=== PATIENT | female | born 1975 | race Caucasian/White ===

== ENCOUNTER 2018-01-28 00:14 | Inpatient (IN) | payer BC, OTHER ==
[2018-01-28 00:50] VITALS: BMI 28.1
--- NOTE | 2018-01-28 00:50 | PDOC ---
History of Present Illness - General Chief Complaint: Rectal Bleed Stated Complaint: RECTAL BLEEDING Time Seen by Provider: 01/28/18 00:50 History Source: Patient - History of Present Illness Initial Comments: 42 year old female with history of crohn's complaining of rectal bleeding with several episodes of bloody diarrhea, nausea and vomiting. and LLQ abdominal pain. denies fever/ chills. pmhx: Chrons disease currently not on any meds. PMD: Past History - Past Medical History Allergies/Adverse Reactions: Allergies Allergy/AdvReac Type Severity Reaction Status Date / Time No Known Allergies Allergy Verified 01/28/18 00:41 Home Medications: Ambulatory Orders Eszopiclone 2 mg PO HS 01/28/18 Mesalamine [Canasa] 1,000 mg RC PRN 01/28/18 Mesalamine [Pentasa] 1,000 mg PO TID 30 Days #180 capsule.er 02/13/18 - Suicide/Smoking/Psychosocial Hx Smoking History: Never smoked Have you smoked in the past 12 months: No Information on smoking cessation initiated: No Hx Alcohol Use: No Drug/Substance Use Hx: No *Physical Exam - Vital Signs Last Vital Signs Temp Pulse Resp BP Pulse Ox 99.9 F H 99 H 20 116/77 99 01/28/18 00:41 01/28/18 00:41 01/28/18 00:41 01/28/18 00:41 01/28/18 00:41 - Physical Exam General Appearance: Yes: Appropriately Dressed Respiratory/Chest: positive: Lungs Clear, Normal Breath Sounds Cardiovascular: positive: Tachycardia Gastrointestinal/Abdominal: positive: Normal Bowel Sounds, Tender (LLQ), Soft Musculoskeletal: positive: Normal Inspection Extremity: positive: Normal Capillary Refill, Normal Inspection, Normal Range of Motion Integumentary: positive: Normal Color, Dry, Warm Neurologic: positive: Fully Oriented, Alert, Normal Mood/Affect ED Treatment Course - LABORATORY CBC & Chemistry Diagram: 02/04/18 06:30 02/04/18 06:30 Medical Decision Making - Medical Decision Making 01/28/18 05:52 A: abdominal pain P: cbc cmp guaiac stool + 01/28/18 06:23 CTAP: extensive colitis covered with levaquin and flagyl. Patient signed out to Carlton SAEED for Zahra Hinds / patient to be admitted for further management of care. 0 *DC/Admit/Observation/Transfer Diagnosis at time of Disposition: Bloody diarrhea, Colitis, Hypokalemia Abdominal pain Qualifiers: Abdominal location: left lower quadrant Qualified Code(s): R10.32 - Left lower quadrant pain - Discharge Dispostion Disposition: AGAINST MEDICAL ADVICE Decision to Admit order: Yes - Referrals - Patient Instructions - Post Discharge Activity
[2018-01-28] MEDS ORDERED: SODIUM CHLORIDE 500 ML IV STA (01:30)
[2018-01-28 02:17] LABS: BASO % 0.5 % (0-2.0); EOS % 0.9 % (0-4.5); HEMATOCRIT 33.1 % (32.4-45.2); HEMOGLOBIN 11.5 GM/dL (10.7-15.3); LYMPH % 7.9 % (8-40); MCH 30.7 pg (25.7-33.7); MCHC 34.7 g/dl (32.0-36.0); MEAN CELL VOLUME 88.4 fl (80-96); MEAN PLT VOLUME 6.6 fl (7.5-11.1); MONO % 7.3 % (3.8-10.2); NEUT % 83.4 % (42.8-82.8); PLATELET COUNT 562 K/MM3 (134-434); RBC 3.75 M/mm3 (3.60-5.2); RDW 15.1 % (11.6-15.6); RETICULOCYTES 1.25 % (0.5-1.5); WHITE BLOOD COUNT 13.6 K/mm3 (4.0-10.0)
[2018-01-28 02:36] LABS: INR 1.21 (0.82-1.09); PROTHROMBIN TIME (PATIENT) 13.7 SEC (9.7-13.0)
[2018-01-28 02:44] LABS: SERUM PREGNANCY TEST NEGATIVE
[2018-01-28 02:49] LABS: ALBUMIN 3.4 g/dl (3.4-5.0); ALK PHOS 124 U/L (45-117); ANION GAP 9 (8-16); BILIRUBIN,TOTAL 0.3 mg/dL (0.2-1.0); BLOOD UREA NITROGEN 4 mg/dL (7-18); CALCIUM 8.5 mg/dL (8.5-10.1); CHLORIDE 103 mmol/L (98-107); CO2 26 mmol/L (21-32); CREATININE 0.8 mg/dL (0.55-1.02); GLUCOSE,RANDOM 117 mg/dL (74-106); SGOT/AST 17 U/L (15-37); SGPT/ALT 23 U/L (12-78); SODIUM 138 mmol/L (136-145); TOT PROT 7.3 g/dl (6.4-8.2)
[2018-01-28] MEDS ORDERED: ONDANSETRON 4 MG/2 ML VIAL IVPUSH ONE (03:24)
[2018-01-28] MEDS ORDERED: POTASSIUM CHLORIDE TABS 20 MEQ TABLET.ER (FP) PO ONE ×2 (05:06→05:13)
[2018-01-28] MEDS ORDERED: morphine CARPU-JECT 2 MG/1 ML DISP.SYRIN IVPUSH ONE (05:10)
[2018-01-28] MEDS ORDERED: RANITIDINE HCL 150 MG TABLET (FP) ONE (06:28)
[2018-01-28] MEDS ORDERED: METOCLOPRAMIDE HCL INJECTION 10 MG/2 ML VIAL IVPB ONE (06:28)
[2018-01-28] MEDS ORDERED: morphine SULFATE 4 MG/ML VIAL ONE ×2 (06:29→09:28)
[2018-01-28] MEDS ORDERED: MAG HYDROX/AL HYDROX/SIMETH 30 ML UNIT-DOSE CUP ONE (06:29)
[2018-01-28] MEDS ORDERED: METOCLOPRAMIDE HCL INJECTION 10 MG/2 ML VIAL ONE (06:41)
[2018-01-28] MEDS ORDERED: SODIUM CHLORIDE 1,000 ML IV SCH ×2 (07:30→17:52)
--- NOTE | 2018-01-28 07:33 | HP ---
CHIEF COMPLAINT: bloody diarrhea, nausea, vomiting, abdominal pain, bloating PCP: Dr. Gilbert HISTORY OF PRESENT ILLNESS: This is a 42 year old female with PMHx of Crohn's Disease who presented to the ED with three days of bloody diarrhea, nausea, vomiting, abdominal pain, and bloating. The patient reports she has not had a Crohn's flare up in years and that she cannot remember when her last colonoscopy was. The patient recently moved to the area and does not have a GI provider. She denies any sick contacts. She denies any recent travel. The patient denies any chills. She denies any chest pain, palpitations, headache, dizziness, lower extremity edema. ER course was notable for: (1) Temp 99.9, pulse 99, BP 116/77, resp 20, O2 99% on RA (2) WBC 13.6, platelets 562 (3) K 3, repleted Recent Travel: PAST MEDICAL HISTORY: PAST SURGICAL HISTORY: Social History: Smoking: denies Alcohol: denies Drugs: smokes marijuana Family History: Allergies No Known Allergies Allergy (Verified 01/28/18 00:41) HOME MEDICATIONS: Home Medications Medication Instructions Recorded Eszopiclone 2 mg PO HS 01/28/18 Mesalamine [Canasa] 1,000 mg RC PRN 01/28/18 REVIEW OF SYSTEMS CONSTITUTIONAL: Absent: fever, chills, diaphoresis, generalized weakness, malaise, loss of appetite, weight change HEENT: Absent: rhinorrhea, nasal congestion, throat pain, throat swelling, difficulty swallowing, mouth swelling, ear pain, eye pain, visual changes CARDIOVASCULAR: Absent: chest pain, syncope, palpitations, irregular heart rate, lightheadedness , peripheral edema RESPIRATORY: Absent: cough, shortness of breath, dyspnea with exertion, orthopnea, wheezing, stridor, hemoptysis GASTROINTESTINAL: Nausea, vomiting, bloody diarrhea, abdominal pain, distention x3 days. Hx of Crohn's Absent: constipation GENITOURINARY: Absent: dysuria, frequency, urgency, hesitancy, hematuria, flank pain, genital pain MUSCULOSKELETAL: Absent: myalgia, arthralgia, joint swelling, back pain, neck pain SKIN: Absent: rash, itching, pallor HEMATOLOGIC/IMMUNOLOGIC: Absent: easy bleeding, easy bruising, lymphadenopathy, frequent infections ENDOCRINE: Absent: unexplained weight gain, unexplained weight loss, heat intolerance, cold intolerance NEUROLOGIC: Absent: headache, focal weakness or paresthesias, dizziness, unsteady gait, seizure, mental status changes, bladder or bowel incontinence PSYCHIATRIC: Absent: anxiety, depression, suicidal or homicidal ideation, hallucinations. PHYSICAL EXAMINATION Vital Signs - 24 hr 01/28/18 01/28/18 00:41 01:11 Temperature 99.9 F H Pulse Rate 99 H Respiratory 20 Rate Blood Pressure 116/77 O2 Sat by Pulse 99 98 Oximetry (%) GENERAL: Awake, alert, and fully oriented, in no acute distress. HEAD: Normal with no signs of trauma. EYES: Pupils equal, round and reactive to light, extraocular movements intact, sclera anicteric, conjunctiva clear. No lid lag. EARS, NOSE, THROAT: Ears normal, nares patent, oropharynx clear without exudates. Moist mucous membranes. NECK: Normal range of motion, supple without lymphadenopathy LUNGS: Breath sounds equal, clear to auscultation bilaterally. No wheezes, and no crackles. No accessory muscle use. HEART: Regular rate and rhythm, normal S1 and S2 without murmur, rub or gallop. ABDOMEN: Soft, distended. LLQ/LUQ tenderness. Normoactive bowel sounds. No hepatomegaly or splenomegaly. MUSCULOSKELETAL: Normal range of motion at all joints. No bony deformities or tenderness. No CVA tenderness. UPPER EXTREMITIES: 2+ pulses, warm, well-perfused. No cyanosis. No clubbing. No peripheral edema. LOWER EXTREMITIES: 2+ pulses, warm, well-perfused. No calf tenderness. No peripheral edema. NEUROLOGICAL: Cranial nerves II-XII intact. Normal speech. PSYCHIATRIC: Cooperative. Good eye contact. Appropriate mood and affect. SKIN: Warm, dry, normal turgor, no rashes or lesions noted, normal capillary refill. Laboratory Results - last 24 hr 01/28/18 01/28/18 01/28/18 02:00 02:00 02:00 WBC 13.6 H RBC 3.75 Hgb 11.5 Hct 33.1 MCV 88.4 MCH 30.7 MCHC 34.7 RDW 15.1 Plt Count 562 H MPV 6.6 L Neutrophils % 83.4 H Lymphocytes % 7.9 L Monocytes % 7.3 Eosinophils % 0.9 Basophils % 0.5 Retic Count 1.25 PT with INR 13.70 H INR 1.21 H Sodium Potassium Chloride Carbon Dioxide Anion Gap BUN Creatinine Creat Clearance w eGFR Random Glucose Calcium Total Bilirubin AST ALT Alkaline Phosphatase Total Protein Albumin Serum , Qual Negative Stool Occult Blood Positive Blood Type Antibody Screen 01/28/18 01/28/18 02:00 02:00 WBC RBC Hgb Hct MCV MCH MCHC RDW Plt Count MPV Neutrophils % Lymphocytes % Monocytes % Eosinophils % Basophils % Retic Count PT with INR INR Sodium 138 Potassium 3.0 L Chloride 103 Carbon Dioxide 26 Anion Gap 9 BUN 4 L Creatinine 0.8 Creat Clearance w eGFR > 60 Random Glucose 117 H Calcium 8.5 Total Bilirubin 0.3 AST 17 ALT 23 Alkaline Phosphatase 124 H Total Protein 7.3 Albumin 3.4 Serum , Qual Stool Occult Blood Blood Type O POSITIVE Antibody Screen Negative Assessment: This is a 42 year old female with PMHx of Crohn's Disease who presented to the ED with three days of bloody diarrhea, nausea, vomiting, abdominal pain, and bloating. Plan: 1) Bloody diarrhea - CTAP: Moderate colitis extending from the hepatic flexure to the rectum may be due to infection or inflammatory bowel disease. Small involuting right ovarian cysts - Likely Crohn's flare however cannot rule out infectious etiology - Will send stool studies to r/o infection. If all are negative for infection, will consider starting steroid taper - NPO for now - Pain management: Morphine 1mg IVPB q4h prn - IV fluids - Trend H/H - F/u GI consult 2) F/E/N: - Hypokalemia: repleted, recheck this afternoon - NPO, bowel rest - Monitor electrolytes 3) Prophylaxis: - Hold all chemical DVT prophylaxis 2/2 - SCDs bilaterally 4) Dispo: - Requires continued inpatient care CODE STATUS: FULL CODE Visit type - Emergency Visit Emergency Visit: Yes ED Registration Date: 01/28/18 Care time: The patient presented to the Emergency Department on the above date and was hospitalized for further evaluation of their emergent condition. - New Patient This patient is new to me today: Yes Date on this admission: 01/28/18 - Critical Care Critical Care patient: No Hospitalist Screening - Colonoscopy Questionnaire Colonoscopy Questionnaire: Colonoscopy Questionnaire - Patient: 50 - 75 years old and never had a screening colonoscopy: No History of colon or rectal polyps, or CA: Unknown History of IBD, Crohn's disease or UC: Yes History of abdominal radiation therapy as a child: No - Relative: 1 with colon or rectal CA, or polyps at age 60 or younger: Unknown Colon or rectal CA diagnosed at age 45 or younger: Unknown Multiple relatives with colon or rectal CA: Unknown - Outcome: Screening Result: Positive Screen
--- NOTE | 2018-01-28 08:29 | CON.GI ---
Consult Consult Specialty:: GI Reason for Consultation:: colitis, history of Crohn's - History of Present Illness History of Present Illness: chart reviewed. The events noted. As per initial intake: This is a 42 year old female with PMHx of Crohn's Disease who presented to the ED with three days of bloody diarrhea, nausea, vomiting, abdominal pain, and bloating. The patient reports she has not had a Crohn's flare up in years and that she cannot remember when her last colonoscopy was. The patient recently moved to the area and does not have a GI provider. She denies any sick contacts. She denies any recent travel. The patient denies any chills. She denies any chest pain, palpitations, headache, dizziness, lower extremity edema. CT scan of the abdomen and pelvis revealed colitis from hepatic flexure to the rectum. Patient had mild leukocytosis and hypokalemia on admission. At the time of this encounter the patient appears in mild distress. Reports fairly acute onset generalized abdominal pain with 2 episodes of hematochezia 3 days ago. Asymptomatic prior to that. Denies dysphagia, odynophagia, chronic GERD-like symptoms, weight loss, jaundice, fever, chills, joint, skin, eye symptoms. No records of recent colonoscopy. There is no recent history of chronic NSAID use, excessive alcohol. There is no history of hypercoagulable states, or excessive bleeding. Denies exposure to ill, changes in diet, new medications, recent travel, eating out. History of Crohn's colitis managed with 5-ASA compounds and steroids with last flareup 12 years ago. Not on any maintenance for the last 12 years. - History Source History Provided By: Patient, Medical Record - Alcohol/Substance Use Hx Alcohol Use: No - Smoking History Smoking history: Never smoked Have you smoked in the past 12 months: No Home Medications - Allergies Allergies/Adverse Reactions: Allergies Allergy/AdvReac Type Severity Reaction Status Date / Time No Known Allergies Allergy Verified 01/28/18 00:41 - Home Medications Home Medications: Ambulatory Orders Eszopiclone 2 mg PO HS 01/28/18 Mesalamine [Canasa] 1,000 mg RC PRN 01/28/18 Family Disease History - Family Disease History Family History: Unremarkable Review of Systems Findings/Remarks: as per H&P and HPI Physical Exam-GI Vital Signs: Vital Signs Temperature 99.9 F H 01/28/18 00:41 Pulse Rate 99 H 01/28/18 00:41 Respiratory Rate 20 01/28/18 00:41 Blood Pressure 116/77 01/28/18 00:41 O2 Sat by Pulse Oximetry (%) 98 01/28/18 01:11 Constitutional: Yes: Anxious, Mild Distress Eyes: Yes: Conjunctiva Clear HENT: Yes: Atraumatic Neck: Yes: Supple Cardiovascular: Yes: Regular Rate and Rhythm. No: Bradycardia, Tachycardia Respiratory: Yes: Regular Gastrointestinal Inspection: No: Distention ...Auscultate: Yes: Normoactive Bowel Sounds ...Palpate: Yes: Guarding, Soft, Tenderness, Tenderness, Rebound. No: Firm/ Rigid, Mass Neurological: Yes: Alert, Oriented Labs: CBC, BMP 01/28/18 02:00 01/28/18 02:00 INR, PTT INR 1.21 (0.82-1.09) H 01/28/18 02:00 Laboratory Last Values WBC 15.8 K/mm3 (4.0-10.0) H 01/28/18 09:50 RBC 3.99 M/mm3 (3.60-5.2) 01/28/18 09:50 Hgb 11.9 GM/dL (10.7-15.3) 01/28/18 09:50 Hct 35.6 % (32.4-45.2) 01/28/18 09:50 MCV 89.2 fl (80-96) 01/28/18 09:50 MCH 29.9 pg (25.7-33.7) 01/28/18 09:50 MCHC 33.5 g/dl (32.0-36.0) 01/28/18 09:50 RDW 14.9 % (11.6-15.6) 01/28/18 09:50 Plt Count 618 K/MM3 (134-434) H 01/28/18 09:50 MPV 6.8 fl (7.5-11.1) L 01/28/18 09:50 Neutrophils % 83.4 % (42.8-82.8) H 01/28/18 02:00 Lymphocytes % 7.9 % (8-40) L 01/28/18 02:00 Monocytes % 7.3 % (3.8-10.2) 01/28/18 02:00 Eosinophils % 0.9 % (0-4.5) 01/28/18 02:00 Basophils % 0.5 % (0-2.0) 01/28/18 02:00 Retic Count 1.25 % (0.5-1.5) 01/28/18 02:00 PT with INR 13.70 SEC (9.7-13.0) H 01/28/18 02:00 INR 1.21 (0.82-1.09) H 01/28/18 02:00 Sodium 138 mmol/L (136-145) 01/28/18 02:00 Potassium 3.0 mmol/L (3.5-5.1) L 01/28/18 02:00 Chloride 103 mmol/L (98-107) 01/28/18 02:00 Carbon Dioxide 26 mmol/L (21-32) 01/28/18 02:00 Anion Gap 9 (8-16) 01/28/18 02:00 BUN 4 mg/dL (7-18) L 01/28/18 02:00 Creatinine 0.8 mg/dL (0.55-1.02) 01/28/18 02:00 Creat Clearance w eGFR > 60 (>60) 01/28/18 02:00 Random Glucose 117 mg/dL (74-106) H 01/28/18 02:00 Calcium 8.5 mg/dL (8.5-10.1) 01/28/18 02:00 Total Bilirubin 0.3 mg/dL (0.2-1.0) 01/28/18 02:00 AST 17 U/L (15-37) 01/28/18 02:00 ALT 23 U/L (12-78) 01/28/18 02:00 Alkaline Phosphatase 124 U/L (45-117) H 01/28/18 02:00 Total Protein 7.3 g/dl (6.4-8.2) 01/28/18 02:00 Albumin 3.4 g/dl (3.4-5.0) 01/28/18 02:00 Serum , Qual Negative 01/28/18 02:00 Stool Occult Blood Positive (NEGATIVE) 01/28/18 08:50 Blood Type O POSITIVE 01/28/18 02:00 Antibody Screen Negative 01/28/18 02:00 Imaging - Results Cat Scan: Report Reviewed Problem List - Problems (1) Hematochezia Code(s): K92.1 - MELENA (2) Crohn's colitis Code(s): K50.10 - CROHN'S DISEASE OF LARGE INTESTINE WITHOUT COMPLICATIONS (3) Abdominal pain Code(s): R10.9 - UNSPECIFIED ABDOMINAL PAIN Qualifiers: Abdominal location: left lower quadrant Qualified Code(s): R10.32 - Left lower quadrant pain (4) Colitis Code(s): K52.9 - NONINFECTIVE GASTROENTERITIS AND COLITIS, UNSPECIFIED (5) Hypokalemia Code(s): E87.6 - HYPOKALEMIA Assessment/Plan Agree with bowel rest, IV fluids, stool workup for infectious etiologies. Consider Cipro and Flagyl. Agree with holding off steroids until infectious etiology is ruled out. Daily CBC, CMP, direct bili. IBD panel. EGD and colonoscopy in 4-6 weeks.
[2018-01-28] MEDS ORDERED: morphine SULFATE 4 MG/ML VIAL IVPUSH PRN (09:06)
[2018-01-28 10:30] LABS: HEMATOCRIT 35.6 % (32.4-45.2); HEMOGLOBIN 11.9 GM/dL (10.7-15.3); MCH 29.9 pg (25.7-33.7); MCHC 33.5 g/dl (32.0-36.0); MEAN CELL VOLUME 89.2 fl (80-96); MEAN PLT VOLUME 6.8 fl (7.5-11.1); PLATELET COUNT 618 K/MM3 (134-434); RBC 3.99 M/mm3 (3.60-5.2); RDW 14.9 % (11.6-15.6); WHITE BLOOD COUNT 15.8 K/mm3 (4.0-10.0)
[2018-01-28] MEDS ORDERED: morphine SULFATE 4 MG/ML VIAL IVPUSH ONE (11:00)
[2018-01-28] MEDS ORDERED: ACETAMINOPHEN 325 MG TABLET (FP) ONE (15:30)
[2018-01-28 17:03] LABS: HEMATOCRIT 29.8 % (32.4-45.2); HEMOGLOBIN 10.3 GM/dL (10.7-15.3); MCH 30.4 pg (25.7-33.7); MCHC 34.7 g/dl (32.0-36.0); MEAN CELL VOLUME 87.6 fl (80-96); MEAN PLT VOLUME 6.4 fl (7.5-11.1); PLATELET COUNT 506 K/MM3 (134-434); RBC 3.39 M/mm3 (3.60-5.2); RDW 15.2 % (11.6-15.6); WHITE BLOOD COUNT 16.7 K/mm3 (4.0-10.0)
[2018-01-28 17:37] LABS: ANION GAP 12 (8-16); CALCIUM 7.7 mg/dL (8.5-10.1); CHLORIDE 102 mmol/L (98-107); CO2 22 mmol/L (21-32); CREATININE 0.6 mg/dL (0.55-1.02); GLUCOSE,RANDOM 115 mg/dL (74-106); SODIUM 136 mmol/L (136-145)
[2018-01-28 17:39] LABS: BLOOD UREA NITROGEN 2 mg/dL (7-18)
[2018-01-28 17:40] LABS: POTASSIUM 2.7 mmol/L (3.5-5.1)
[2018-01-28] MEDS ORDERED: POTASSIUM CHLORIDE 30 MEQ in SODIUM CHLORIDE 300 ML IVPB ONE (18:00)
[2018-01-28] MEDS ORDERED: KCL 10 MEQ IVPB 10 MEQ/100 ML INFUS.BAG IVPB SCH ×2 (18:00→18:30)
[2018-01-28] MEDS ORDERED: PROCHLORPERAZINE INJECTION 10 MG/2 ML VIAL IVPB ONE (19:00)
[2018-01-29] MEDS: morphine SULFATE 4 MG/ML VIAL IVPUSH PRN ×5 (01:27→20:35)
[2018-01-29 02:20] LABS: MAGNESIUM 1.8 mg/dL (1.8-2.4); POTASSIUM 3.3 mmol/L (3.5-5.1)
[2018-01-29] MEDS ORDERED: PT OWN MED DRAWER 7, Y5N ONE (06:29)
[2018-01-29 09:26] LABS: BASO % 0.2 % (0-2.0); EOS % 0.1 % (0-4.5); HEMATOCRIT 30.2 % (32.4-45.2); HEMOGLOBIN 10.3 GM/dL (10.7-15.3); LYMPH % 6.9 % (8-40); MCH 30.4 pg (25.7-33.7); MCHC 34.1 g/dl (32.0-36.0); MEAN PLT VOLUME 6.8 fl (7.5-11.1); MONO % 10.6 % (3.8-10.2); NEUT % 82.2 % (42.8-82.8); PLATELET COUNT 486 K/MM3 (134-434); RDW 15.4 % (11.6-15.6)
--- NOTE | 2018-01-29 09:55 | PN ---
Progress Note, Physician History of Present Illness: Slept all night. Reports hematochezia and eneralized abdominal pain. - Current Medication List Current Medications: Active Medications Levofloxacin (Levaquin 500 Mg Premixed Ivpb -) 500 mg in 100 mls @ 100 mls/hr IVPB DAILY NANCY PRN Reason: Protocol Metronidazole (Flagyl 500mg Premixed Ivpb -) 500 mg in 100 mls @ 100 mls/hr IVPB Q8H-IV NANCY Last Admin: 01/29/18 01:28 Dose: 100 mls/hr Sodium Chloride (Normal Saline -) 1,000 mls @ 100 mls/hr IV ASDIR NANCY Last Admin: 01/28/18 18:24 Dose: 100 mls/hr Morphine Sulfate (Morphine Sulfate) 2 mg IVPUSH Q4H PRN PRN Reason: PAIN LEVEL 6-10 Last Admin: 01/29/18 06:10 Dose: 2 mg - Objective Vital Signs: Vital Signs Temperature 98.8 F 01/29/18 05:00 Pulse Rate 93 H 01/29/18 05:00 Respiratory Rate 18 01/29/18 05:00 Blood Pressure 130/79 01/29/18 05:00 O2 Sat by Pulse Oximetry (%) 97 01/28/18 21:00 Constitutional: Yes: No Distress, Calm Eyes: Yes: Conjunctiva Clear HENT: Yes: Atraumatic Neck: Yes: Supple Respiratory: Yes: Regular Gastrointestinal: Yes: Normal Bowel Sounds, Soft, Rectal Bleeding, Tenderness. No: Ascites, Distention Neurological: Yes: Alert, Oriented Labs: CBC, BMP 01/29/18 08:00 INR, PTT INR 1.21 (0.82-1.09) H 01/28/18 02:00 Laboratory Last Values WBC 15.0 K/mm3 (4.0-10.0) H 01/29/18 08:00 RBC 3.40 M/mm3 (3.60-5.2) L 01/29/18 08:00 Hgb 10.3 GM/dL (10.7-15.3) L 01/29/18 08:00 Hct 30.2 % (32.4-45.2) L 01/29/18 08:00 MCV 89.0 fl (80-96) 01/29/18 08:00 MCH 30.4 pg (25.7-33.7) 01/29/18 08:00 MCHC 34.1 g/dl (32.0-36.0) 01/29/18 08:00 RDW 15.4 % (11.6-15.6) 01/29/18 08:00 Plt Count 486 K/MM3 (134-434) H 01/29/18 08:00 MPV 6.8 fl (7.5-11.1) L 01/29/18 08:00 Neutrophils % 82.2 % (42.8-82.8) 01/29/18 08:00 Lymphocytes % 6.9 % (8-40) L 01/29/18 08:00 Monocytes % 10.6 % (3.8-10.2) H 01/29/18 08:00 Eosinophils % 0.1 % (0-4.5) D 01/29/18 08:00 Basophils % 0.2 % (0-2.0) 01/29/18 08:00 Retic Count 1.25 % (0.5-1.5) 01/28/18 02:00 PT with INR 13.70 SEC (9.7-13.0) H 01/28/18 02:00 INR 1.21 (0.82-1.09) H 01/28/18 02:00 Sodium 136 mmol/L (136-145) 01/28/18 16:57 Potassium 3.3 mmol/L (3.5-5.1) L 01/29/18 01:10 Chloride 102 mmol/L (98-107) 01/28/18 16:57 Carbon Dioxide 22 mmol/L (21-32) 01/28/18 16:57 Anion Gap 12 (8-16) 01/28/18 16:57 BUN 2 mg/dL (7-18) L* 01/28/18 16:57 Creatinine 0.6 mg/dL (0.55-1.02) 01/28/18 16:57 Creat Clearance w eGFR > 60 (>60) 01/28/18 02:00 Random Glucose 115 mg/dL (74-106) H 01/28/18 16:57 Calcium 7.7 mg/dL (8.5-10.1) L 01/28/18 16:57 Magnesium 1.8 mg/dL (1.8-2.4) 01/29/18 01:10 Total Bilirubin 0.3 mg/dL (0.2-1.0) 01/28/18 02:00 AST 17 U/L (15-37) 01/28/18 02:00 ALT 23 U/L (12-78) 01/28/18 02:00 Alkaline Phosphatase 124 U/L (45-117) H 01/28/18 02:00 Total Protein 7.3 g/dl (6.4-8.2) 01/28/18 02:00 Albumin 3.4 g/dl (3.4-5.0) 01/28/18 02:00 Serum , Qual Negative 01/28/18 02:00 Stool Occult Blood Positive (NEGATIVE) 01/28/18 08:50 Blood Type O POSITIVE 01/28/18 02:00 Antibody Screen Negative 01/28/18 02:00 Microbiology 01/28/18 08:50 Stool Clostridium difficile Antigen (NOEL) - Final 01/28/18 08:50 Stool Clostridium difficile Toxin Assay - Final Problem List - Problems (1) Hematochezia Code(s): K92.1 - MELENA (2) Crohn's colitis Code(s): K50.10 - CROHN'S DISEASE OF LARGE INTESTINE WITHOUT COMPLICATIONS (3) Abdominal pain Code(s): R10.9 - UNSPECIFIED ABDOMINAL PAIN Qualifiers: Abdominal location: left lower quadrant Qualified Code(s): R10.32 - Left lower quadrant pain (4) Colitis Code(s): K52.9 - NONINFECTIVE GASTROENTERITIS AND COLITIS, UNSPECIFIED (5) Hypokalemia Code(s): E87.6 - HYPOKALEMIA Assessment/Plan Nontoxic. Not in distress Clear liquid diet, Stool workup for infectious etiologies. Cipro and Flagyl. Agree with holding off steroids until infectious etiology is ruled out. Daily CBC, CMP, direct bili. IBD panel. EGD and colonoscopy in 4-6 weeks.
[2018-01-29 10:25] LABS: CHLORIDE 105 mmol/L (98-107); POTASSIUM 3.1 mmol/L (3.5-5.1); SODIUM 139 mmol/L (136-145)
--- NOTE | 2018-01-29 11:33 | PN ---
Progress Note, Physician Chief Complaint: Events noted has abdominal pain two episodes of bloody diarrhea nausea+ - Current Medication List Current Medications: Active Medications Levofloxacin (Levaquin 500 Mg Premixed Ivpb -) 500 mg in 100 mls @ 100 mls/hr IVPB DAILY NANCY PRN Reason: Protocol Last Admin: 01/29/18 10:21 Dose: 100 mls/hr Metronidazole (Flagyl 500mg Premixed Ivpb -) 500 mg in 100 mls @ 100 mls/hr IVPB Q8H-IV NANCY Last Admin: 01/29/18 10:21 Dose: 100 mls/hr Sodium Chloride (Normal Saline -) 1,000 mls @ 100 mls/hr IV ASDIR NANCY Last Admin: 01/28/18 18:24 Dose: 100 mls/hr Morphine Sulfate (Morphine Sulfate) 2 mg IVPUSH Q4H PRN PRN Reason: PAIN LEVEL 6-10 Last Admin: 01/29/18 10:21 Dose: 2 mg - Objective Vital Signs: Vital Signs Temperature 98.8 F 01/29/18 05:00 Pulse Rate 93 H 01/29/18 05:00 Respiratory Rate 18 01/29/18 05:00 Blood Pressure 130/79 01/29/18 05:00 O2 Sat by Pulse Oximetry (%) 97 01/28/18 21:00 Constitutional: Yes: No Distress Cardiovascular: Yes: Regular Rate and Rhythm Respiratory: Yes: CTA Bilaterally Gastrointestinal: Yes: Normal Bowel Sounds, Soft, Tenderness (generalized) Edema: No Labs: CBC, BMP 01/29/18 08:00 INR, PTT INR 1.21 (0.82-1.09) H 01/28/18 02:00 Problem List - Problems (1) Abdominal pain Code(s): R10.9 - UNSPECIFIED ABDOMINAL PAIN Qualifiers: Abdominal location: left lower quadrant Qualified Code(s): R10.32 - Left lower quadrant pain (2) Bloody diarrhea Code(s): R19.7 - DIARRHEA, UNSPECIFIED (3) Colitis Code(s): K52.9 - NONINFECTIVE GASTROENTERITIS AND COLITIS, UNSPECIFIED (4) Crohn's colitis Code(s): K50.10 - CROHN'S DISEASE OF LARGE INTESTINE WITHOUT COMPLICATIONS (5) Hypokalemia Code(s): E87.6 - HYPOKALEMIA Assessment/Plan PLAN replace potassium Add potassium chloride in fluids clear liquid diet pain control GI follow up
[2018-01-29 11:43] LABS: ALBUMIN 2.8 g/dl (3.4-5.0); ALK PHOS 97 U/L (45-117); ANION GAP 12 (8-16); BILIRUBIN,TOTAL 0.3 mg/dL (0.2-1.0); BLOOD UREA NITROGEN 3 mg/dL (7-18); CALCIUM 7.8 mg/dL (8.5-10.1); CO2 22 mmol/L (21-32); CREATININE 0.6 mg/dL (0.55-1.02); GLUCOSE,RANDOM 100 mg/dL (74-106); MAGNESIUM 2.1 mg/dL (1.8-2.4); PHOSPHOROUS 2.1 mg/dL (2.5-4.9); SGOT/AST 8 U/L (15-37); SGPT/ALT 14 U/L (12-78); TOT PROT 6.2 g/dl (6.4-8.2)
[2018-01-29] MEDS: POTASSIUM CHLORIDE 40 MEQ in SODIUM CHLORIDE 1,000 ML IVPB SCH ×3 (13:29→23:24)
[2018-01-29] MEDS: ACETAMINOPHEN 325 MG TABLET (FP) PO PRN ×2 (13:45→19:36)
[2018-01-29] MEDS ORDERED: POTASSIUM CHLORIDE TABS 20 MEQ TABLET.ER (FP) PO ONE (13:45)
--- NOTE | 2018-01-29 13:58 | EKG ---
Test Reason : Blood Pressure : / mmHG Vent. Rate : 089 BPM Atrial Rate : 089 BPM P-R Int : 144 ms QRS Dur : 090 ms QT Int : 370 ms P-R-T Axes : 025 054 -13 degrees QTc Int : 450 ms NORMAL SINUS RHYTHM ABNORMAL QRS-T ANGLE, CONSIDER PRIMARY T WAVE ABNORMALITY ABNORMAL ECG WHEN COMPARED WITH ECG OF 18-MAY-2001 12:46, NO SIGNIFICANT CHANGE WAS FOUND Confirmed by YURIDIA CHUA, DEVON ([id number]) on 01/29/2018 1:58:11 PM Referred By: Confirmed By:DEVON SHI MD
[2018-01-29] MEDS: predniSONE 20 MG TABLET (UD) PO SCH (15:46)
[2018-01-29] MEDS: ONDANSETRON 4 MG/2 ML VIAL IVPUSH PRN (16:05)
[2018-01-29 20:43] LABS: BASO % 0.2 % (0-2.0); EOS % 0.1 % (0-4.5); HEMATOCRIT 30.1 % (32.4-45.2); HEMOGLOBIN 10.4 GM/dL (10.7-15.3); LYMPH % 3.2 % (8-40); MCH 30.4 pg (25.7-33.7); MCHC 34.3 g/dl (32.0-36.0); MEAN CELL VOLUME 88.5 fl (80-96); MEAN PLT VOLUME 6.7 fl (7.5-11.1); MONO % 8.6 % (3.8-10.2); NEUT % 87.9 % (42.8-82.8); PLATELET COUNT 486 K/MM3 (134-434); RBC 3.41 M/mm3 (3.60-5.2); RDW 15.4 % (11.6-15.6); WHITE BLOOD COUNT 14.8 K/mm3 (4.0-10.0)
[2018-01-29 21:07] LABS: ALBUMIN 2.6 g/dl (3.4-5.0); ALK PHOS 93 U/L (45-117); ANION GAP 12 (8-16); BILIRUBIN,TOTAL 0.4 mg/dL (0.2-1.0); BLOOD UREA NITROGEN 3 mg/dL (7-18); CALCIUM 7.8 mg/dL (8.5-10.1); CHLORIDE 106 mmol/L (98-107); CO2 21 mmol/L (21-32); CREATININE 0.5 mg/dL (0.55-1.02); GLUCOSE,RANDOM 122 mg/dL (74-106); POTASSIUM 3.3 mmol/L (3.5-5.1); SGOT/AST 8 U/L (15-37); SGPT/ALT 14 U/L (12-78); SODIUM 139 mmol/L (136-145)
[2018-01-30] MEDS: morphine SULFATE 4 MG/ML VIAL IVPUSH PRN ×2 (01:33→09:38)
[2018-01-30] MEDS ORDERED: morphine SULFATE 4 MG/ML VIAL IVPUSH ONE (03:45)
[2018-01-30 07:58] LABS: BASO % 0.2 % (0-2.0); HEMATOCRIT 28.8 % (32.4-45.2); HEMOGLOBIN 9.9 GM/dL (10.7-15.3); MCH 30.3 pg (25.7-33.7); MCHC 34.3 g/dl (32.0-36.0); MEAN CELL VOLUME 88.4 fl (80-96); MEAN PLT VOLUME 6.7 fl (7.5-11.1); MONO % 10.2 % (3.8-10.2); NEUT % 85.6 % (42.8-82.8); PLATELET COUNT 462 K/MM3 (134-434); RBC 3.26 M/mm3 (3.60-5.2); WHITE BLOOD COUNT 15.4 K/mm3 (4.0-10.0)
[2018-01-30 08:47] LABS: CHLORIDE 108 mmol/L (98-107); POTASSIUM 3.5 mmol/L (3.5-5.1); SODIUM 140 mmol/L (136-145)
[2018-01-30 09:00] LABS: ALBUMIN 2.4 g/dl (3.4-5.0); ALK PHOS 87 U/L (45-117); ANION GAP 8 (8-16); BILIRUBIN,TOTAL 0.4 mg/dL (0.2-1.0); BLOOD UREA NITROGEN 4 mg/dL (7-18); CALCIUM 7.7 mg/dL (8.5-10.1); CO2 24 mmol/L (21-32); CREATININE 0.5 mg/dL (0.55-1.02); GLUCOSE,RANDOM 172 mg/dL (74-106); MAGNESIUM 2.2 mg/dL (1.8-2.4); SGOT/AST 7 U/L (15-37); SGPT/ALT 13 U/L (12-78); TOT PROT 5.8 g/dl (6.4-8.2)
[2018-01-30] MEDS: POTASSIUM CHLORIDE 40 MEQ in SODIUM CHLORIDE 1,000 ML IVPB SCH ×3 (09:37→18:18)
[2018-01-30] MEDS ORDERED: PT OWN MED DRAWER 7, Y5N ONE ×2 (13:10→17:37)
--- NOTE | 2018-01-30 13:13 | PN ---
Progress Note, Physician Chief Complaint: has abdominal pain-- better three episodes of bloody diarrhea nausea+ also on her menstrual cycle - Current Medication List Current Medications: Active Medications Acetaminophen (Tylenol -) 650 mg PO Q6H PRN PRN Reason: FEVER Last Admin: 01/29/18 19:36 Dose: 650 mg Levofloxacin (Levaquin 500 Mg Premixed Ivpb -) 500 mg in 100 mls @ 100 mls/hr IVPB DAILY NANCY PRN Reason: Protocol Last Admin: 01/30/18 09:39 Dose: 100 mls/hr Metronidazole (Flagyl 500mg Premixed Ivpb -) 500 mg in 100 mls @ 100 mls/hr IVPB Q8H-IV NANCY Last Admin: 01/30/18 09:38 Dose: 100 mls/hr Potassium Chloride 40 meq/ (Sodium Chloride) 1,020 mls @ 100 mls/hr IVPB Q10H [facility] Last Admin: 01/30/18 09:37 Dose: Not Given Melatonin (Melatonin) 5 mg PO HS PRN PRN Reason: INSOMNIA Morphine Sulfate (Morphine Sulfate) 2 mg IVPUSH Q4H PRN PRN Reason: PAIN LEVEL 6-10 Last Admin: 01/30/18 09:38 Dose: 2 mg Ondansetron HCl (Zofran Injection) 4 mg IVPUSH Q6H PRN PRN Reason: NAUSEA AND/OR VOMITING Last Admin: 01/29/18 16:05 Dose: 4 mg Oxycodone HCl (Roxicodone -) 10 mg PO Q4H PRN PRN Reason: PAIN LEVEL 6-10 Prednisone (Deltasone -) 40 mg PO DAILY [facility] Last Admin: 01/29/18 15:46 Dose: 40 mg - Objective Vital Signs: Vital Signs Temperature 97.4 F L 01/30/18 07:00 Pulse Rate 84 01/30/18 07:00 Respiratory Rate 20 01/30/18 07:00 Blood Pressure 110/63 01/30/18 07:00 O2 Sat by Pulse Oximetry (%) 97 01/29/18 20:30 Constitutional: Yes: Mild Distress Cardiovascular: Yes: Regular Rate and Rhythm Respiratory: Yes: CTA Bilaterally Gastrointestinal: Yes: Normal Bowel Sounds, Soft, Tenderness Edema: No Labs: CBC, BMP 01/30/18 06:30 01/30/18 06:30 INR, PTT INR 1.21 (0.82-1.09) H 01/28/18 02:00 Problem List - Problems (1) Abdominal pain Code(s): R10.9 - UNSPECIFIED ABDOMINAL PAIN Qualifiers: Abdominal location: left lower quadrant Qualified Code(s): R10.32 - Left lower quadrant pain (2) Bloody diarrhea Code(s): R19.7 - DIARRHEA, UNSPECIFIED (3) Colitis Code(s): K52.9 - NONINFECTIVE GASTROENTERITIS AND COLITIS, UNSPECIFIED (4) Crohn's colitis Code(s): K50.10 - CROHN'S DISEASE OF LARGE INTESTINE WITHOUT COMPLICATIONS (5) Hypokalemia Code(s): E87.6 - HYPOKALEMIA Assessment/Plan PLAN stool studies negative for infectious etiology started on Prednisone clear liquid diet pain control, oxycodone prn GI follow up noted
[2018-01-30] MEDS: predniSONE 20 MG TABLET (UD) PO SCH (13:17)
[2018-01-30] MEDS: oxyCODONE HCL 5 MG TABLET PO PRN ×3 (13:18→22:23)
--- NOTE | 2018-01-30 15:37 | PN ---
Progress Note, Physician History of Present Illness: No acute events. Reports feeling better. - Current Medication List Current Medications: Active Medications Acetaminophen (Tylenol -) 650 mg PO Q6H PRN PRN Reason: FEVER Last Admin: 01/29/18 19:36 Dose: 650 mg Levofloxacin (Levaquin 500 Mg Premixed Ivpb -) 500 mg in 100 mls @ 100 mls/hr IVPB DAILY NANCY PRN Reason: Protocol Last Admin: 01/30/18 09:39 Dose: 100 mls/hr Metronidazole (Flagyl 500mg Premixed Ivpb -) 500 mg in 100 mls @ 100 mls/hr IVPB Q8H-IV NANCY Last Admin: 01/30/18 09:38 Dose: 100 mls/hr Potassium Chloride 40 meq/ (Sodium Chloride) 1,020 mls @ 100 mls/hr IVPB Q10H [facility] Last Admin: 01/30/18 13:17 Dose: 100 mls/hr Melatonin (Melatonin) 5 mg PO HS PRN PRN Reason: INSOMNIA Morphine Sulfate (Morphine Sulfate) 2 mg IVPUSH Q4H PRN PRN Reason: PAIN LEVEL 6-10 Last Admin: 01/30/18 09:38 Dose: 2 mg Ondansetron HCl (Zofran Injection) 4 mg IVPUSH Q6H PRN PRN Reason: NAUSEA AND/OR VOMITING Last Admin: 01/29/18 16:05 Dose: 4 mg Oxycodone HCl (Roxicodone -) 10 mg PO Q4H PRN PRN Reason: PAIN LEVEL 6-10 Last Admin: 01/30/18 13:18 Dose: 10 mg Prednisone (Deltasone -) 40 mg PO DAILY [facility] Last Admin: 01/30/18 13:17 Dose: 40 mg - Objective Vital Signs: Vital Signs Temperature 99.2 F 01/30/18 14:19 Pulse Rate 97 H 01/30/18 14:19 Respiratory Rate 20 01/30/18 14:19 Blood Pressure 128/75 01/30/18 14:19 O2 Sat by Pulse Oximetry (%) 97 01/29/18 20:30 Labs: CBC, BMP 01/30/18 06:30 01/30/18 06:30 INR, PTT INR 1.21 (0.82-1.09) H 01/28/18 02:00 Problem List - Problems (1) Hematochezia Code(s): K92.1 - MELENA (2) Crohn's colitis Code(s): K50.10 - CROHN'S DISEASE OF LARGE INTESTINE WITHOUT COMPLICATIONS (3) Abdominal pain Code(s): R10.9 - UNSPECIFIED ABDOMINAL PAIN Qualifiers: Abdominal location: left lower quadrant Qualified Code(s): R10.32 - Left lower quadrant pain (4) Colitis Code(s): K52.9 - NONINFECTIVE GASTROENTERITIS AND COLITIS, UNSPECIFIED (5) Hypokalemia Code(s): E87.6 - HYPOKALEMIA Assessment/Plan Nontoxic. Not in distress. Clinically better. Continue current medications and care.
[2018-01-30] MEDS: MELATONIN 5 MG TABLETS PO PRN (22:22)
[2018-01-31] MEDS: ONDANSETRON 4 MG/2 ML VIAL IVPUSH PRN (03:44)
[2018-01-31] MEDS: oxyCODONE HCL 5 MG TABLET PO PRN ×5 (03:55→21:38)
[2018-01-31] MEDS: POTASSIUM CHLORIDE 40 MEQ in SODIUM CHLORIDE 1,000 ML IVPB SCH ×2 (04:42→06:34)
[2018-01-31 06:07] LABS: HBSAG SCREEN Negative (Negative); HEP B CORE AB, TOT Positive (Negative)
[2018-01-31 07:49] LABS: HEMATOCRIT 28.9 % (32.4-45.2); HEMOGLOBIN 9.8 GM/dL (10.7-15.3); MCH 30.4 pg (25.7-33.7); MEAN CELL VOLUME 89.2 fl (80-96); MEAN PLT VOLUME 6.6 fl (7.5-11.1); PLATELET COUNT 539 K/MM3 (134-434); RBC 3.24 M/mm3 (3.60-5.2); RDW 15.6 % (11.6-15.6); WHITE BLOOD COUNT 10.1 K/mm3 (4.0-10.0)
[2018-01-31 08:11] LABS: ALBUMIN 2.5 g/dl (3.4-5.0); ANION GAP 7 (8-16); BLOOD UREA NITROGEN 4 mg/dL (7-18); CALCIUM 7.8 mg/dL (8.5-10.1); CHLORIDE 106 mmol/L (98-107); CO2 26 mmol/L (21-32); CREATININE 0.7 mg/dL (0.55-1.02); GLUCOSE,RANDOM 117 mg/dL (74-106); POTASSIUM 3.3 mmol/L (3.5-5.1); SGPT/ALT 11 U/L (12-78); SODIUM 139 mmol/L (136-145)
[2018-01-31 08:12] LABS: ALK PHOS 72 U/L (45-117); BILIRUBIN,TOTAL 0.3 mg/dL (0.2-1.0); TOT PROT 5.7 g/dl (6.4-8.2)
[2018-01-31 08:17] LABS: SGOT/AST 4 U/L (15-37)
[2018-01-31] MEDS: predniSONE 20 MG TABLET (UD) PO SCH (09:18)
[2018-01-31 10:48] LABS: PLATELET ESTIMATE INCREASED
--- NOTE | 2018-01-31 11:17 | PN ---
Progress Note (short form) - Note Progress Note: Pt seen/ examined chart reviewed still complains of blood in stool and cramps. overall feels better Vital Signs Temp 98.8 F 01/31/18 09:14 Pulse 97 H 01/31/18 09:14 Resp 20 01/31/18 09:14 BP 117/71 01/31/18 09:14 Pulse Ox 97 01/30/18 21:00 Intake & Output 01/30/18 01/30/18 01/31/18 11:59 23:59 11:59 Intake Total 2814 305 3854 Balance 8799 202 6934 Intake: IV 1100 1000 Normal Saline - 1,000 ml 1100 @ 100 mls/hr IV ASDIR NANCY Rx#:[id number] sl 1000 IVPB 100 200 100 Oral 260 200 Other: Voiding Method Toilet Toilet Toilet # Unmeasured Voids Void 2 Bowel Movement Yes: bloody diarrhea Yes No # Bowel Movements 1 1 Active Medications Acetaminophen (Tylenol -) 650 mg PO Q6H PRN PRN Reason: FEVER Last Admin: 01/29/18 19:36 Dose: 650 mg Levofloxacin (Levaquin 500 Mg Premixed Ivpb -) 500 mg in 100 mls @ 100 mls/hr IVPB DAILY NANCY PRN Reason: Protocol Last Admin: 01/31/18 09:18 Dose: 100 mls/hr Metronidazole (Flagyl 500mg Premixed Ivpb -) 500 mg in 100 mls @ 100 mls/hr IVPB Q8H-IV NANCY Last Admin: 01/31/18 09:18 Dose: 100 mls/hr Potassium Chloride 40 meq/ (Sodium Chloride) 1,020 mls @ 100 mls/hr IVPB Q10H NANCY Last Admin: 01/31/18 06:34 Dose: 100 mls/hr Potassium Chloride/Dextrose/Sod Cl (D5-1/2ns+20 Meq Kcl -) 20 meq in 1,000 mls @ 100 mls/hr IV ASDIR NANCY Melatonin (Melatonin) 5 mg PO HS PRN PRN Reason: INSOMNIA Last Admin: 01/30/18 22:22 Dose: 5 mg Morphine Sulfate (Morphine Sulfate) 2 mg IVPUSH Q4H PRN PRN Reason: PAIN LEVEL 6-10 Last Admin: 01/30/18 09:38 Dose: 2 mg Ondansetron HCl (Zofran Injection) 4 mg IVPUSH Q6H PRN PRN Reason: NAUSEA AND/OR VOMITING Last Admin: 01/31/18 03:44 Dose: 4 mg Oxycodone HCl (Roxicodone -) 10 mg PO Q4H PRN PRN Reason: PAIN LEVEL 6-10 Last Admin: 01/31/18 09:13 Dose: 10 mg Prednisone (Deltasone -) 40 mg PO DAILY NANCY Last Admin: 01/31/18 09:18 Dose: 40 mg CBC, BMP 01/31/18 07:30 01/31/18 07:30 Microbiology 01/28/18 10:37 Blood Culture - Preliminary Blood - Peripheral Venous NO GROWTH OBTAINED AFTER 72 HOURS, INCUBATION TO CONTINUE FOR 2 DAYS. 01/28/18 09:50 Blood Culture - Preliminary Blood - Peripheral Venous NO GROWTH OBTAINED AFTER 72 HOURS, INCUBATION TO CONTINUE FOR 2 DAYS. 01/29/18 21:30 Blood Culture - Preliminary Blood - Peripheral Venous NO GROWTH OBTAINED AFTER 24 HOURS, INCUBATION TO CONTINUE FOR 4 DAYS. 01/29/18 21:30 Blood Culture - Preliminary Blood - Peripheral Venous NO GROWTH OBTAINED AFTER 24 HOURS, INCUBATION TO CONTINUE FOR 4 DAYS. 01/28/18 08:50 Salmonella/Shigella Culture - Final Stool NO GROWTH OF SALMONELLA OR SHIGELLA SPECIES OBTAINED Campylobacter Culture - Final NO GROWTH OF CAMPYLOBACTER SPECIES OBTAINED Yersinia Culture - Final NO GROWTH OF YERSINIA SPECIES OBTAINED Vibrio Culture - Final NO GROWTH OF VIBRIO SPECIES OBTAINED Escherichia coli 0157 Culture - Final NO GROWTH OF E COLI 0157 OBTAINED Physical Exam. Constitutional: Yes: No Distress. comfortable Cardiovascular: Yes: Regular Rate and Rhythm Respiratory: Yes: CTA Bilaterally Gastrointestinal: Yes: Normal Bowel Sounds, Soft, Tenderness-- mild . Edema: No Problem List - Problems (1) Abdominal pain Code(s): R10.9 - UNSPECIFIED ABDOMINAL PAIN Qualifiers: Abdominal location: left lower quadrant Qualified Code(s): R10.32 - Left lower quadrant pain (2) Bloody diarrhea Code(s): R19.7 - DIARRHEA, UNSPECIFIED (3) Colitis Code(s): K52.9 - NONINFECTIVE GASTROENTERITIS AND COLITIS, UNSPECIFIED (4) Crohn's colitis Code(s): K50.10 - CROHN'S DISEASE OF LARGE INTESTINE WITHOUT COMPLICATIONS (5) Hypokalemia Code(s): E87.6 - HYPOKALEMIA Assessment/Plan slowly getting better continue present care continue mild hydration with k supplement monitor lytes will follow
[2018-01-31] MEDS: D5-1/2NS+20 MEQ KCL - 20 MEQ/1,000 ML INFUS.BAG IV SCH (12:23)
--- NOTE | 2018-01-31 14:56 | PN ---
Progress Note, Physician History of Present Illness: No acute events. Reports feeling better. Report small amount of blood in stool. - Current Medication List Current Medications: Active Medications Acetaminophen (Tylenol -) 650 mg PO Q6H PRN PRN Reason: FEVER Last Admin: 01/29/18 19:36 Dose: 650 mg Levofloxacin (Levaquin 500 Mg Premixed Ivpb -) 500 mg in 100 mls @ 100 mls/hr IVPB DAILY NANCY PRN Reason: Protocol Last Admin: 01/31/18 09:18 Dose: 100 mls/hr Metronidazole (Flagyl 500mg Premixed Ivpb -) 500 mg in 100 mls @ 100 mls/hr IVPB Q8H-IV NANCY Last Admin: 01/31/18 09:18 Dose: 100 mls/hr Potassium Chloride/Dextrose/Sod Cl (D5-1/2ns+20 Meq Kcl -) 20 meq in 1,000 mls @ 100 mls/hr IV ASDIR NANCY Last Admin: 01/31/18 12:23 Dose: 100 mls/hr Melatonin (Melatonin) 5 mg PO HS PRN PRN Reason: INSOMNIA Last Admin: 01/30/18 22:22 Dose: 5 mg Morphine Sulfate (Morphine Sulfate) 2 mg IVPUSH Q4H PRN PRN Reason: PAIN LEVEL 6-10 Last Admin: 01/30/18 09:38 Dose: 2 mg Ondansetron HCl (Zofran Injection) 4 mg IVPUSH Q6H PRN PRN Reason: NAUSEA AND/OR VOMITING Last Admin: 01/31/18 03:44 Dose: 4 mg Oxycodone HCl (Roxicodone -) 10 mg PO Q4H PRN PRN Reason: PAIN LEVEL 6-10 Last Admin: 01/31/18 13:29 Dose: 10 mg Prednisone (Deltasone -) 40 mg PO DAILY [facility] Last Admin: 01/31/18 09:18 Dose: 40 mg - Objective Vital Signs: Vital Signs Temperature 98.8 F 01/31/18 09:14 Pulse Rate 97 H 01/31/18 09:14 Respiratory Rate 20 01/31/18 09:14 Blood Pressure 117/71 01/31/18 09:14 O2 Sat by Pulse Oximetry (%) 97 01/30/18 21:00 Gastrointestinal: Yes: Normal Bowel Sounds, Soft, Rectal Bleeding. No: Tenderness, Tenderness, Rebound, Vomiting Labs: CBC, BMP 01/31/18 07:30 01/31/18 07:30 INR, PTT INR 1.21 (0.82-1.09) H 01/28/18 02:00 Problem List - Problems (1) Hematochezia Code(s): K92.1 - MELENA (2) Crohn's colitis Code(s): K50.10 - CROHN'S DISEASE OF LARGE INTESTINE WITHOUT COMPLICATIONS (3) Abdominal pain Code(s): R10.9 - UNSPECIFIED ABDOMINAL PAIN Qualifiers: Abdominal location: left lower quadrant Qualified Code(s): R10.32 - Left lower quadrant pain (4) Colitis Code(s): K52.9 - NONINFECTIVE GASTROENTERITIS AND COLITIS, UNSPECIFIED (5) Hypokalemia Code(s): E87.6 - HYPOKALEMIA Assessment/Plan Nontoxic. Not in distress. Continue current medications and care. Expect hematochezia to improve over the next 1-2 days.
[2018-02-01] MEDS: oxyCODONE HCL 5 MG TABLET PO PRN ×3 (01:49→20:55)
[2018-02-01] MEDS: ACETAMINOPHEN 325 MG TABLET (FP) PO PRN ×2 (05:36→20:56)
[2018-02-01 07:17] LABS: HEMATOCRIT 30.7 % (32.4-45.2); HEMOGLOBIN 10.6 GM/dL (10.7-15.3); MCH 30.3 pg (25.7-33.7); MCHC 34.5 g/dl (32.0-36.0); MEAN CELL VOLUME 87.9 fl (80-96); MEAN PLT VOLUME 6.7 fl (7.5-11.1); PLATELET COUNT 605 K/MM3 (134-434); RBC 3.49 M/mm3 (3.60-5.2); RDW 16.2 % (11.6-15.6); WHITE BLOOD COUNT 9.9 K/mm3 (4.0-10.0)
[2018-02-01 08:19] LABS: ALBUMIN 2.5 g/dl (3.4-5.0); ANION GAP 10 (8-16); BILIRUBIN,TOTAL 0.2 mg/dL (0.2-1.0); CALCIUM 7.8 mg/dL (8.5-10.1); CHLORIDE 103 mmol/L (98-107); CO2 25 mmol/L (21-32); CREATININE 0.7 mg/dL (0.55-1.02); GLUCOSE,RANDOM 118 mg/dL (74-106); POTASSIUM 3.3 mmol/L (3.5-5.1); SGOT/AST 12 U/L (15-37); SGPT/ALT 11 U/L (12-78); SODIUM 138 mmol/L (136-145); TOT PROT 5.9 g/dl (6.4-8.2)
[2018-02-01 08:20] LABS: ALK PHOS 68 U/L (45-117)
[2018-02-01] MEDS: morphine SULFATE 4 MG/ML VIAL IVPUSH PRN (08:29)
[2018-02-01 08:43] LABS: BLOOD UREA NITROGEN 2 mg/dL (7-18)
[2018-02-01] MEDS ORDERED: PT OWN MED DRAWER 7, Y5N ONE (09:24)
[2018-02-01] MEDS: predniSONE 20 MG TABLET (UD) PO SCH (09:25)
[2018-02-01] MEDS ORDERED: HEPATITIS A VIRUS VACCINE/PF 720 UNIT/0.5 ML VIAL IM ONE (10:00)
[2018-02-01 11:19] LABS: PLATELET ESTIMATE INCREASED
[2018-02-01] MEDS: D5-1/2NS+20 MEQ KCL - 20 MEQ/1,000 ML INFUS.BAG IV SCH (11:35)
--- NOTE | 2018-02-01 13:03 | PN ---
Progress Note (short form) - Note Progress Note: Anxious having fever cramps + - better decrease in blood in stools Vital Signs Temp 100.1 F H 02/01/18 10:35 Pulse 101 H 02/01/18 09:27 Resp 17 02/01/18 09:27 BP 115/62 02/01/18 09:27 Pulse Ox 98 01/31/18 21:00 Intake & Output 01/31/18 02/01/18 02/01/18 23:59 11:59 23:59 Intake Total 1400 850 Balance 1400 850 Intake: IV 400 650 D5-1/2NS+20 MEQ KCL - 20 200 meq In 1,000 ml @ 100 mls /hr IV ASDIR [facility] Rx#: [id number] sl 200 650 IVPB 300 Oral 700 200 Other: Voiding Method Toilet Toilet # Unmeasured Voids Void 3 3 Bowel Movement Yes No Active Medications Acetaminophen (Tylenol -) 650 mg PO Q6H PRN PRN Reason: FEVER Last Admin: 02/01/18 05:36 Dose: 650 mg Levofloxacin (Levaquin 500 Mg Premixed Ivpb -) 500 mg in 100 mls @ 100 mls/hr IVPB DAILY NANCY PRN Reason: Protocol Last Admin: 02/01/18 09:25 Dose: 100 mls/hr Metronidazole (Flagyl 500mg Premixed Ivpb -) 500 mg in 100 mls @ 100 mls/hr IVPB Q8H-IV NANCY Last Admin: 02/01/18 09:25 Dose: 100 mls/hr Potassium Chloride/Dextrose/Sod Cl (D5-1/2ns+20 Meq Kcl -) 20 meq in 1,000 mls @ 100 mls/hr IV ASDIR NANCY Last Admin: 01/31/18 12:23 Dose: 100 mls/hr Melatonin (Melatonin) 5 mg PO HS PRN PRN Reason: INSOMNIA Last Admin: 01/30/18 22:22 Dose: 5 mg Morphine Sulfate (Morphine Sulfate) 2 mg IVPUSH Q4H PRN PRN Reason: PAIN LEVEL 6-10 Last Admin: 02/01/18 08:29 Dose: 2 mg Ondansetron HCl (Zofran Injection) 4 mg IVPUSH Q6H PRN PRN Reason: NAUSEA AND/OR VOMITING Last Admin: 01/31/18 03:44 Dose: 4 mg Oxycodone HCl (Roxicodone -) 10 mg PO Q4H PRN PRN Reason: PAIN LEVEL 6-10 Last Admin: 02/01/18 01:49 Dose: 10 mg Prednisone (Deltasone -) 40 mg PO DAILY NANCY Last Admin: 02/01/18 09:25 Dose: 40 mg CBC, BMP 02/01/18 06:30 02/01/18 06:30 Microbiology 01/28/18 10:37 Blood Culture - Preliminary Blood - Peripheral Venous NO GROWTH OBTAINED AFTER 96 HOURS, INCUBATION TO CONTINUE FOR 1 DAYS. 01/28/18 09:50 Blood Culture - Preliminary Blood - Peripheral Venous NO GROWTH OBTAINED AFTER 96 HOURS, INCUBATION TO CONTINUE FOR 1 DAYS. 01/29/18 21:30 Blood Culture - Preliminary Blood - Peripheral Venous NO GROWTH OBTAINED AFTER 48 HOURS, INCUBATION TO CONTINUE FOR 3 DAYS. 01/29/18 21:30 Blood Culture - Preliminary Blood - Peripheral Venous NO GROWTH OBTAINED AFTER 48 HOURS, INCUBATION TO CONTINUE FOR 3 DAYS. Physical Exam. Constitutional: Yes: No Distress. comfortable. Anxious Cardiovascular: Yes: Regular Rate and Rhythm Respiratory: Yes: CTA Bilaterally Gastrointestinal: Yes: Normal Bowel Sounds, Soft, Tenderness-- mild . Edema: No Problem List - Problems (1) Abdominal pain Code(s): R10.9 - UNSPECIFIED ABDOMINAL PAIN Qualifiers: Abdominal location: left lower quadrant Qualified Code(s): R10.32 - Left lower quadrant pain (2) Bloody diarrhea Code(s): R19.7 - DIARRHEA, UNSPECIFIED (3) Colitis Code(s): K52.9 - NONINFECTIVE GASTROENTERITIS AND COLITIS, UNSPECIFIED (4) Crohn's colitis Code(s): K50.10 - CROHN'S DISEASE OF LARGE INTESTINE WITHOUT COMPLICATIONS (5) Hypokalemia Code(s): E87.6 - HYPOKALEMIA Assessment/Plan slowly getting better continue present care continue mild hydration with k supplement monitor lytes will follow
--- NOTE | 2018-02-01 15:54 | PN ---
GI Progress Note Subjective: GI F/U FOR DR LOVE PT REPORTS MALAISE HAVING LLQ CRAMPING TENESMUS RECTAL BLEEDING, DIARRHEA AND FEVERS/CHILLS NO N/V/ ABLE TO KEEP LIQUIDS DOWN - Objective Vital Signs: Vital Signs Temperature 99.1 F 02/01/18 14:52 Pulse Rate 98 H 02/01/18 14:52 Respiratory Rate 20 02/01/18 14:52 Blood Pressure 96/64 02/01/18 14:52 O2 Sat by Pulse Oximetry (%) 98 01/31/18 21:00 Constitutional: Well Nourished, No Distress, Calm Eyes: Yes: WNL (+BS/SOUND ACTIVE BS SOFT TENDER TO PALPATION DIFFUSELY NO REBOUND OR GUARDING) Labs: CBC, BMP 02/01/18 06:30 02/01/18 06:30 INR, PTT INR 1.21 (0.82-1.09) H 01/28/18 02:00 Assessment/Plan cROHN'S COLITIS WITH FLARE INFECTIOUS CULPRITS RULED OUT ON STOOL STUDIES PT HAD FEVERS/ELEVATED WBC--NOW IMPRIOVED ON PREDNISONE HAVE OFFERED PATIENT TOPICAL RX/ FOAM OR RETENTION ENEMA, BUT SHE DOES NOT BELIEVE THAT WOULD HELP HER AND BELIEVES THAT THE ENEMA THAT SHE WAS GIVEN AN OUTPATIENT MADE HER WORSE CURRENTLY SHE APPEARS NON-TOXIC AND CT SCAN 3 DAYS AGO FAILED TO REVEAL COLLECTION/FREE AIR PT WITH EXTENSIVE COLITIS AGREE WITH IV ABX/ PREDNISONE/ 5-ASA MEDS PO PT WOULD BE BETTER SERVED WITH TOPICAL THERAPY I.E. [facility] FOAM OR CORTIFOAM PRIOR TO A RETENTION ENEMA, BUT SHE WISHES TO DEFER F/U LYTES CLOSELY ON STEROID F/U CBC/PLT F/U C-RP NEEDS KCL INCREASE DIET/ LOW RESIDUE LACTOSE FREE BOOST SUPPLEMENTS ANTI-DIARRHEALS/ IMODIUM NEEDED STOOL CHART TO BEDSIDE WT DAILY WOULD F/U FUA IN AM TO R/O A "CONTINUOUS COLUMN OF AIR" IF NO IMPROVEMENT, MAY NEED SOLUMEDROL 100MG IV Q 8/ CONTINUOUS INFUSION MD WOODROW
[2018-02-02] MEDS: oxyCODONE HCL 5 MG TABLET PO PRN ×4 (00:42→21:55)
[2018-02-02] MEDS: D5-1/2NS+20 MEQ KCL - 20 MEQ/1,000 ML INFUS.BAG IV SCH ×2 (01:10→13:35)
[2018-02-02] MEDS: MELATONIN 5 MG TABLETS PO PRN ×2 (02:11→21:56)
[2018-02-02 07:36] LABS: HEMATOCRIT 27.9 % (32.4-45.2); HEMOGLOBIN 9.6 GM/dL (10.7-15.3); MCH 30.3 pg (25.7-33.7); MCHC 34.5 g/dl (32.0-36.0); MEAN CELL VOLUME 87.8 fl (80-96); MEAN PLT VOLUME 6.6 fl (7.5-11.1); PLATELET COUNT 543 K/MM3 (134-434); RBC 3.18 M/mm3 (3.60-5.2); RDW 15.9 % (11.6-15.6); WHITE BLOOD COUNT 10.8 K/mm3 (4.0-10.0)
[2018-02-02 07:54] LABS: ALBUMIN 2.1 g/dl (3.4-5.0); ANION GAP 6 (8-16); BLOOD UREA NITROGEN 4 mg/dL (7-18); CALCIUM 7.5 mg/dL (8.5-10.1); CHLORIDE 103 mmol/L (98-107); CO2 31 mmol/L (21-32); GLUCOSE,RANDOM 120 mg/dL (74-106); POTASSIUM 3.1 mmol/L (3.5-5.1); SGPT/ALT 10 U/L (12-78); SODIUM 140 mmol/L (136-145)
[2018-02-02 07:57] LABS: ALK PHOS 59 U/L (45-117); BILIRUBIN,TOTAL 0.4 mg/dL (0.2-1.0); CREATININE 0.7 mg/dL (0.55-1.02); SGOT/AST 11 U/L (15-37)
[2018-02-02 09:34] LABS: ANISOCYTOSIS 1+; PLATELET ESTIMATE INCREASED
[2018-02-02] MEDS: predniSONE 20 MG TABLET (UD) PO SCH (09:53)
[2018-02-02] MEDS ORDERED: POTASSIUM CHLORIDE ORAL LIQUID 20 MEQ/15 ML PO ONE (10:15)
--- NOTE | 2018-02-02 12:11 | PN ---
Progress Note (short form) - Note Progress Note: Better temp coming down wants to eat more marta better decreased blood in stools cultures -ve so far. Vital Signs Temp 98.1 F 02/02/18 10:00 Pulse 97 H 02/02/18 10:00 Resp 19 02/02/18 10:00 BP 131/79 02/02/18 10:00 Pulse Ox 97 02/02/18 09:00 Intake & Output 02/01/18 02/02/18 02/02/18 23:59 11:59 23:59 Intake Total 1830 1460 Balance 1830 1460 Intake: IV 400 1100 D5-1/2NS+20 MEQ KCL - 20 400 1100 meq In 1,000 ml @ 100 mls /hr IV ASDIR NANCY Rx#: [id number] IVPB 300 100 Oral 1130 260 Other: Voiding Method Toilet Toilet # Unmeasured Voids Void 4 Bowel Movement Yes # Bowel Movements 2 Active Medications Acetaminophen (Tylenol -) 650 mg PO Q6H PRN PRN Reason: FEVER Last Admin: 02/01/18 20:56 Dose: 650 mg Levofloxacin (Levaquin 500 Mg Premixed Ivpb -) 500 mg in 100 mls @ 100 mls/hr IVPB DAILY NANCY PRN Reason: Protocol Last Admin: 02/02/18 09:53 Dose: 100 mls/hr Metronidazole (Flagyl 500mg Premixed Ivpb -) 500 mg in 100 mls @ 100 mls/hr IVPB Q8H-IV NANCY Last Admin: 02/02/18 09:53 Dose: 100 mls/hr Potassium Chloride/Dextrose/Sod Cl (D5-1/2ns+20 Meq Kcl -) 20 meq in 1,000 mls @ 100 mls/hr IV ASDIR NANCY Last Admin: 02/02/18 01:10 Dose: 100 mls/hr Melatonin (Melatonin) 5 mg PO HS PRN PRN Reason: INSOMNIA Last Admin: 02/02/18 02:11 Dose: 5 mg Ondansetron HCl (Zofran Injection) 4 mg IVPUSH Q6H PRN PRN Reason: NAUSEA AND/OR VOMITING Last Admin: 01/31/18 03:44 Dose: 4 mg Prednisone (Deltasone -) 40 mg PO DAILY [facility]ANCY Last Admin: 02/02/18 09:53 Dose: 40 mg CBC, BMP 02/02/18 06:57 02/02/18 06:57 Microbiology 01/28/18 10:37 Blood Culture - Final Blood - Peripheral Venous NO GROWTH AFTER 5 DAYS INCUBATION 01/28/18 09:50 Blood Culture - Final Blood - Peripheral Venous NO GROWTH AFTER 5 DAYS INCUBATION 02/01/18 06:42 Blood Culture - Preliminary Blood - Peripheral Venous NO GROWTH OBTAINED AFTER 24 HOURS, INCUBATION TO CONTINUE FOR 4 DAYS. 02/01/18 06:30 Blood Culture - Preliminary Blood - Peripheral Venous NO GROWTH OBTAINED AFTER 24 HOURS, INCUBATION TO CONTINUE FOR 4 DAYS. 01/29/18 21:30 Blood Culture - Preliminary Blood - Peripheral Venous NO GROWTH OBTAINED AFTER 72 HOURS, INCUBATION TO CONTINUE FOR 2 DAYS. 01/29/18 21:30 Blood Culture - Preliminary Blood - Peripheral Venous NO GROWTH OBTAINED AFTER 72 HOURS, INCUBATION TO CONTINUE FOR 2 DAYS. Physical Exam. Constitutional: Yes: No Distress. comfortable. Cardiovascular: Yes: Regular Rate and Rhythm Respiratory: Yes: CTA Bilaterally Gastrointestinal: Yes: Normal Bowel Sounds, Soft, Tenderness-- mild . Edema: No Problem List - Problems (1) Abdominal pain Code(s): R10.9 - UNSPECIFIED ABDOMINAL PAIN Qualifiers: Abdominal location: left lower quadrant Qualified Code(s): R10.32 - Left lower quadrant pain (2) Bloody diarrhea Code(s): R19.7 - DIARRHEA, UNSPECIFIED (3) Colitis Code(s): K52.9 - NONINFECTIVE GASTROENTERITIS AND COLITIS, UNSPECIFIED (4) Crohn's colitis Code(s): K50.10 - CROHN'S DISEASE OF LARGE INTESTINE WITHOUT COMPLICATIONS (5) Hypokalemia Code(s): E87.6 - HYPOKALEMIA Assessment/Plan slowly getting better continue present care continue mild hydration with k supplement monitor lytes gi f/u noted pt ambulates in room will follow
--- NOTE | 2018-02-02 16:09 | PN ---
GI Progress Note Subjective: GI FOR DR LOVE PT IN MUCH BETTER SPIRITS TODAY NO N/V/F/C/S STILL REPORTS LLQ CRAMPING AND BRBPR/ TENESMUS ONLY 2 BM'S TODAY FEELS HUNGRY AND WANTS TO TRY SOLID FOODS HASN'T EATEN IN 2 WEEKS, ACCORDING TO PT - Objective Vital Signs: Vital Signs Temperature 98.1 F 02/02/18 10:00 Pulse Rate 97 H 02/02/18 10:00 Respiratory Rate 19 02/02/18 10:00 Blood Pressure 131/79 02/02/18 10:00 O2 Sat by Pulse Oximetry (%) 97 02/02/18 09:00 Constitutional: Well Nourished, No Distress, Calm (+BS/ SOFT/ NT TO PALPATION) Labs: CBC, BMP 02/02/18 06:57 02/02/18 06:57 INR, PTT INR 1.21 (0.82-1.09) H 01/28/18 02:00 Assessment/Plan 42F WITH CROHN'S COLITIS FLARE APPEARS CLINICALLY AND BIOCHEMICALLY IMPROVED TODAY FEELS HUNGRY, LESS PAIN AND ONLY 2 BM'S STILL WITH SOME SCANT RECTAL BLEEDING RECC: PO 5-ASA MEDS ABX/ TOPICAL MESALAINE ENEMA PREDNISONE PO F/U LABS/ WATCH K ON PREDNISONE REPEAT FUA EXAM CBC/SMA-18/ C-RP/ FECAL CALPROTCTIN LOW RESIDUE LACTOSE FREE DIET MD WOODROW
[2018-02-02] MEDS ORDERED: MESALAMINE 4 GM/60 ML ENEMA PR ONE (16:30)
[2018-02-03] MEDS: oxyCODONE HCL 5 MG TABLET PO PRN ×4 (02:00→21:22)
[2018-02-03] MEDS: D5-1/2NS+20 MEQ KCL - 20 MEQ/1,000 ML INFUS.BAG IV SCH ×2 (06:08→12:37)
[2018-02-03 08:15] LABS: HEMOGLOBIN 9.4 GM/dL (10.7-15.3); MCH 29.7 pg (25.7-33.7); MCHC 33.6 g/dl (32.0-36.0); MEAN CELL VOLUME 88.4 fl (80-96); MEAN PLT VOLUME 6.6 fl (7.5-11.1); PLATELET COUNT 547 K/MM3 (134-434); RBC 3.17 M/mm3 (3.60-5.2); WHITE BLOOD COUNT 11.3 K/mm3 (4.0-10.0)
[2018-02-03 08:38] LABS: ALBUMIN 2.1 g/dl (3.4-5.0); ANION GAP 6 (8-16); BLOOD UREA NITROGEN 4 mg/dL (7-18); CALCIUM 7.6 mg/dL (8.5-10.1); CHLORIDE 103 mmol/L (98-107); CO2 30 mmol/L (21-32); GLUCOSE,RANDOM 110 mg/dL (74-106); POTASSIUM 3.2 mmol/L (3.5-5.1); SODIUM 139 mmol/L (136-145)
[2018-02-03 08:42] LABS: ALK PHOS 60 U/L (45-117); BILIRUBIN,TOTAL 0.4 mg/dL (0.2-1.0); CREATININE 0.6 mg/dL (0.55-1.02); SGOT/AST 9 U/L (15-37); SGPT/ALT 12 U/L (12-78); TOT PROT 5.2 g/dl (6.4-8.2)
[2018-02-03] MEDS: predniSONE 20 MG TABLET (UD) PO SCH (09:28)
[2018-02-03 09:35] LABS: ERYTHROCYTE SEDIMENTATION RATE 56 mm/hr (0-20)
[2018-02-03 10:21] LABS: PLATELET ESTIMATE INCREASED
[2018-02-03] MEDS: MESALAMINE 4 GM/60 ML ENEMA PR SCH (12:37)
--- NOTE | 2018-02-03 14:16 | PN ---
Progress Note, Physician History of Present Illness: No acute events. Report small amount of blood in stool. - Current Medication List Current Medications: Active Medications Acetaminophen (Tylenol -) 650 mg PO Q6H PRN PRN Reason: FEVER Last Admin: 02/01/18 20:56 Dose: 650 mg Levofloxacin (Levaquin 500 Mg Premixed Ivpb -) 500 mg in 100 mls @ 100 mls/hr IVPB DAILY NANCY PRN Reason: Protocol Last Admin: 02/03/18 10:43 Dose: 100 mls/hr Metronidazole (Flagyl 500mg Premixed Ivpb -) 500 mg in 100 mls @ 100 mls/hr IVPB Q8H-IV NANCY Last Admin: 02/03/18 09:29 Dose: 100 mls/hr Potassium Chloride/Dextrose/Sod Cl (D5-1/2ns+20 Meq Kcl -) 20 meq in 1,000 mls @ 100 mls/hr IV ASDIR NANCY Last Admin: 02/03/18 12:37 Dose: Not Given Melatonin (Melatonin) 5 mg PO HS PRN PRN Reason: INSOMNIA Last Admin: 02/02/18 21:56 Dose: 5 mg Mesalamine (Rowasa Enema -) 4 gm [place] DAILY [facility] Last Admin: 02/03/18 12:37 Dose: 4 gm Ondansetron HCl (Zofran Injection) 4 mg IVPUSH Q6H PRN PRN Reason: NAUSEA AND/OR VOMITING Last Admin: 01/31/18 03:44 Dose: 4 mg Oxycodone HCl (Roxicodone -) 10 mg PO Q4H PRN PRN Reason: PAIN LEVEL 4 - 6 Last Admin: 02/03/18 06:15 Dose: 10 mg Prednisone (Deltasone -) 40 mg PO DAILY [facility] Last Admin: 02/03/18 09:28 Dose: 40 mg - Objective Vital Signs: Vital Signs Temperature 99.2 F 02/03/18 12:45 Pulse Rate 90 02/03/18 09:48 Respiratory Rate 18 02/03/18 09:48 Blood Pressure 127/78 02/03/18 09:48 O2 Sat by Pulse Oximetry (%) 98 02/03/18 09:00 Constitutional: Yes: Well Nourished, No Distress, Calm Eyes: Yes: Conjunctiva Clear HENT: Yes: Atraumatic Neck: Yes: Supple Cardiovascular: Yes: Regular Rate and Rhythm Respiratory: Yes: Regular Gastrointestinal: Yes: Normal Bowel Sounds, Soft. No: Ascites, Distention, Melena, Tenderness, Vomiting Neurological: Yes: Alert, Oriented Labs: CBC, BMP 02/03/18 07:00 02/03/18 07:00 INR, PTT INR 1.21 (0.82-1.09) H 01/28/18 02:00 Laboratory Last Values WBC 11.3 K/mm3 (4.0-10.0) H 02/03/18 07:00 RBC 3.17 M/mm3 (3.60-5.2) L 02/03/18 07:00 Hgb 9.4 GM/dL (10.7-15.3) L 02/03/18 07:00 Hct 28.0 % (32.4-45.2) L 02/03/18 07:00 MCV 88.4 fl (80-96) 02/03/18 07:00 MCH 29.7 pg (25.7-33.7) 02/03/18 07:00 MCHC 33.6 g/dl (32.0-36.0) 02/03/18 07:00 RDW 16.0 % (11.6-15.6) H 02/03/18 07:00 Plt Count 547 K/MM3 (134-434) H 02/03/18 07:00 MPV 6.6 fl (7.5-11.1) L 02/03/18 07:00 Total Counted 98 02/03/18 07:00 Neutrophils % No Result Required. 02/03/18 07:00 Neutrophils % (Manual) 54.1 % (42.8-82.8) 02/03/18 07:00 Band Neutrophils % 2.0 % 02/03/18 07:00 Lymphocytes % No Result Required. 02/03/18 07:00 Lymphocytes % (Manual) 21.4 % (8-40) D 02/03/18 07:00 Monocytes % 10.2 % (3.8-10.2) 01/30/18 06:30 Monocytes % (Manual) 15 % (3.8-10.2) H 02/03/18 07:00 Eosinophils % 0.0 % (0-4.5) D 01/30/18 06:30 Eosinophils % (Manual) 1.0 % (0-4.5) 02/03/18 07:00 Basophils % 0.2 % (0-2.0) 01/30/18 06:30 Basophils % (Manual) 0.0 % (0-2.0) 02/03/18 07:00 Myelocytes % (Man) 3 % (0-2) H 02/03/18 07:00 Promyelocytes % (Man) 0 % (0-2) D 02/03/18 07:00 Blast Cells % (Manual) 0 % (0-0) 02/03/18 07:00 Nucleated RBC % 1 % (0-0) H 02/03/18 07:00 Metamyelocytes 3 % (0-2) H D 02/03/18 07:00 Hypochromia 1+ 02/02/18 06:57 Platelet Estimate Increased 02/03/18 07:00 Anisocytosis 1+ 02/02/18 06:57 Microcytosis 1+ 02/02/18 06:57 ESR 56 mm/hr (0-20) H 02/03/18 07:00 Retic Count 1.25 % (0.5-1.5) 01/28/18 02:00 PT with INR 13.70 SEC (9.7-13.0) H 01/28/18 02:00 INR 1.21 (0.82-1.09) H 01/28/18 02:00 Sodium 139 mmol/L (136-145) 02/03/18 07:00 Potassium 3.2 mmol/L (3.5-5.1) L 02/03/18 07:00 Chloride 103 mmol/L (98-107) 02/03/18 07:00 Carbon Dioxide 30 mmol/L (21-32) 02/03/18 07:00 Anion Gap 6 (8-16) L 02/03/18 07:00 BUN 4 mg/dL (7-18) L 02/03/18 07:00 Creatinine 0.6 mg/dL (0.55-1.02) 02/03/18 07:00 Creat Clearance w eGFR > 60 (>60) 02/03/18 07:00 Random Glucose 110 mg/dL (74-106) H 02/03/18 07:00 Lactic Acid 0.8 mmol/L (0.0-2.0) 01/29/18 21:30 Calcium 7.6 mg/dL (8.5-10.1) L 02/03/18 07:00 Phosphorus 2.1 mg/dL (2.5-4.9) L 01/29/18 08:00 Magnesium 2.0 mg/dL (1.8-2.4) 01/31/18 07:30 Total Bilirubin 0.4 mg/dL (0.2-1.0) 02/03/18 07:00 AST 9 U/L (15-37) L 02/03/18 07:00 ALT 12 U/L (12-78) 02/03/18 07:00 Alkaline Phosphatase 60 U/L (45-117) 02/03/18 07:00 Total Protein 5.2 g/dl (6.4-8.2) L 02/03/18 07:00 Albumin 2.1 g/dl (3.4-5.0) L 02/03/18 07:00 Serum , Qual Negative 01/28/18 02:00 Stool Occult Blood Positive (NEGATIVE) 01/28/18 08:50 Stool O & P Wet [place] (.) 01/28/18 08:50 Hepatitis A Ab Total Negative (Negative) 01/30/18 06:30 Hep Bs Antigen Negative (Negative) 01/30/18 06:30 Hep Bs Antibody Reactive (.) 01/30/18 06:30 Hep B Core Total Ab Positive (Negative) H 01/30/18 06:30 Hep C Ab Diagnostic <0.1 s/co ratio (0.0-0.9) 01/30/18 06:30 Liver Fibrosis Interp (.) 01/30/18 06:30 O & P Permanent Slide Final report (.) 01/28/18 08:50 Blood Type O POSITIVE 01/28/18 02:00 Antibody Screen Negative 01/28/18 02:00 Problem List - Problems (1) Hematochezia Code(s): K92.1 - MELENA (2) Crohn's colitis Code(s): K50.10 - CROHN'S DISEASE OF LARGE INTESTINE WITHOUT COMPLICATIONS (3) Abdominal pain Code(s): R10.9 - UNSPECIFIED ABDOMINAL PAIN Qualifiers: Abdominal location: left lower quadrant Qualified Code(s): R10.32 - Left lower quadrant pain (4) Colitis Code(s): K52.9 - NONINFECTIVE GASTROENTERITIS AND COLITIS, UNSPECIFIED (5) Hypokalemia Code(s): E87.6 - HYPOKALEMIA Assessment/Plan Nontoxic. Not in distress. Still c/o hematochezia, clots. Mild leukocytosis. Rowasa added, if not better in 2-3 days, will increase dose of steroids. Discussed with the patient
[2018-02-03] MEDS: ACETAMINOPHEN 325 MG TABLET (FP) PO PRN (16:25)
[2018-02-03] MEDS ORDERED: LIDOCAINE VISCOUS 2% ORAL/TOP 20 ML UNIT-DOSE CUP MM ONE (17:15)
[2018-02-03] MEDS ORDERED: ZOLPIDEM TARTRATE 5 MG TABLET PO PRN (17:36)
--- NOTE | 2018-02-03 17:36 | PN ---
Progress Note (short form) - Note Progress Note: mood cheerful feels much better requesting Ambien-- says unable to sleep overall better Vital Signs Temp 98.5 F 02/03/18 18:00 Pulse 89 02/03/18 18:00 Resp 18 02/03/18 18:00 BP 123/82 02/03/18 18:00 Pulse Ox 98 02/03/18 09:00 Intake & Output 02/02/18 02/03/18 02/03/18 23:59 11:59 23:59 Intake Total 2250 1100 2170 Balance 2250 1100 2170 Intake: IV 800 1000 1200 D5-1/2NS+20 MEQ KCL - 20 800 1000 1200 meq In 1,000 ml @ 100 mls /hr IV ASDIR NANCY Rx#: [id number] IVPB 300 100 100 Oral 1150 870 Other: Voiding Method Toilet Toilet Toilet # Unmeasured Voids Void 2 1 Bowel Movement Yes No # Bowel Movements 2 Active Medications Acetaminophen (Tylenol -) 650 mg PO Q6H PRN PRN Reason: FEVER Last Admin: 02/03/18 16:25 Dose: 650 mg Levofloxacin (Levaquin 500 Mg Premixed Ivpb -) 500 mg in 100 mls @ 100 mls/hr IVPB DAILY NANCY PRN Reason: Protocol Last Admin: 02/03/18 10:43 Dose: 100 mls/hr Metronidazole (Flagyl 500mg Premixed Ivpb -) 500 mg in 100 mls @ 100 mls/hr IVPB Q8H-IV NANCY Last Admin: 02/03/18 17:41 Dose: 100 mls/hr Potassium Chloride/Dextrose/Sod Cl (D5-1/2ns+20 Meq Kcl -) 20 meq in 1,000 mls @ 100 mls/hr IV ASDIR NANCY Last Admin: 02/03/18 12:37 Dose: Not Given Melatonin (Melatonin) 5 mg PO HS PRN PRN Reason: INSOMNIA Last Admin: 02/02/18 21:56 Dose: 5 mg Mesalamine (Rowasa Enema -) 4 gm NC DAILY NANCY Last Admin: 02/03/18 12:37 Dose: 4 gm Ondansetron HCl (Zofran Injection) 4 mg IVPUSH Q6H PRN PRN Reason: NAUSEA AND/OR VOMITING Last Admin: 01/31/18 03:44 Dose: 4 mg Oxycodone HCl (Roxicodone -) 10 mg PO Q4H PRN PRN Reason: PAIN LEVEL 4 - 6 Last Admin: 02/03/18 21:22 Dose: 10 mg Prednisone (Deltasone -) 40 mg PO DAILY NANCY Last Admin: 02/03/18 09:28 Dose: 40 mg Zolpidem Tartrate (Ambien -) 5 mg PO HS PRN PRN Reason: INSOMNIA CBC, BMP 02/03/18 07:00 02/03/18 07:00 Physical Exam. Constitutional: Yes: No Distress. comfortable. Cardiovascular: Yes: Regular Rate and Rhythm Respiratory: Yes: CTA Bilaterally Gastrointestinal: Yes: Normal Bowel Sounds, Soft, Tenderness-- mild . Edema: No Problem List - Problems (1) Abdominal pain Code(s): R10.9 - UNSPECIFIED ABDOMINAL PAIN Qualifiers: Abdominal location: left lower quadrant Qualified Code(s): R10.32 - Left lower quadrant pain (2) Bloody diarrhea Code(s): R19.7 - DIARRHEA, UNSPECIFIED (3) Colitis Code(s): K52.9 - NONINFECTIVE GASTROENTERITIS AND COLITIS, UNSPECIFIED (4) Crohn's colitis Code(s): K50.10 - CROHN'S DISEASE OF LARGE INTESTINE WITHOUT COMPLICATIONS (5) Hypokalemia Code(s): E87.6 - HYPOKALEMIA Assessment/Plan slowly getting better continue present care continue mild hydration with k supplement monitor lytes gi f/u noted pt ambulates in room will follow Ambien prescribed
[2018-02-04] MEDS: oxyCODONE HCL 5 MG TABLET PO PRN ×3 (01:00→16:32)
[2018-02-04 07:40] LABS: HEMOGLOBIN 8.9 GM/dL (10.7-15.3); MCH 29.9 pg (25.7-33.7); MEAN CELL VOLUME 87.8 fl (80-96); MEAN PLT VOLUME 6.6 fl (7.5-11.1); PLATELET COUNT 597 K/MM3 (134-434); RBC 2.97 M/mm3 (3.60-5.2); RDW 16.4 % (11.6-15.6); WHITE BLOOD COUNT 13.2 K/mm3 (4.0-10.0)
[2018-02-04 08:19] LABS: CHLORIDE 103 mmol/L (98-107); POTASSIUM 3.2 mmol/L (3.5-5.1); SODIUM 139 mmol/L (136-145)
[2018-02-04 08:26] LABS: ALK PHOS 54 U/L (45-117); ANION GAP 8 (8-16); BILIRUBIN,TOTAL 0.2 mg/dL (0.2-1.0); BLOOD UREA NITROGEN 3 mg/dL (7-18); CALCIUM 7.4 mg/dL (8.5-10.1); CO2 28 mmol/L (21-32); CREATININE 0.5 mg/dL (0.55-1.02); GLUCOSE,RANDOM 100 mg/dL (74-106); SGOT/AST 9 U/L (15-37); SGPT/ALT 10 U/L (12-78); TOT PROT 4.9 g/dl (6.4-8.2)
[2018-02-04] MEDS: ONDANSETRON 4 MG/2 ML VIAL IVPUSH PRN (08:37)
[2018-02-04] MEDS ORDERED: PT OWN MED DRAWER 7, Y5N ONE ×2 (10:20→10:32)
[2018-02-04] MEDS: predniSONE 20 MG TABLET (UD) PO SCH (10:27)
[2018-02-04] MEDS: MESALAMINE 4 GM/60 ML ENEMA PR SCH (10:30)
[2018-02-04 11:28] LABS: PLATELET ESTIMATE INCREASED
[2018-02-04] MEDS: D5-1/2NS+20 MEQ KCL - 20 MEQ/1,000 ML INFUS.BAG IV SCH (11:30)
[2018-02-04] MEDS ORDERED: POTASSIUM CHLORIDE TABS 20 MEQ TABLET.ER (FP) PO ONE (11:44)
--- NOTE | 2018-02-04 11:44 | PN ---
Progress Note, Physician Chief Complaint: has abdominal pain-- better still has few episodes of bloody diarrhea appetite decreased - Current Medication List Current Medications: Active Medications Acetaminophen (Tylenol -) 650 mg PO Q6H PRN PRN Reason: FEVER Last Admin: 02/03/18 16:25 Dose: 650 mg Levofloxacin (Levaquin 500 Mg Premixed Ivpb -) 500 mg in 100 mls @ 100 mls/hr IVPB DAILY NANCY PRN Reason: Protocol Last Admin: 02/04/18 11:43 Dose: 100 mls/hr Metronidazole (Flagyl 500mg Premixed Ivpb -) 500 mg in 100 mls @ 100 mls/hr IVPB Q8H-IV NANCY Last Admin: 02/04/18 10:27 Dose: 100 mls/hr Potassium Chloride/Dextrose/Sod Cl (D5-1/2ns+20 Meq Kcl -) 20 meq in 1,000 mls @ 100 mls/hr IV ASDIR NANCY Last Admin: 02/03/18 12:37 Dose: Not Given Melatonin (Melatonin) 5 mg PO HS PRN PRN Reason: INSOMNIA Last Admin: 02/02/18 21:56 Dose: 5 mg Mesalamine (Rowasa Enema -) 4 gm TN DAILY NANCY Last Admin: 02/04/18 10:30 Dose: Not Given Ondansetron HCl (Zofran Injection) 4 mg IVPUSH Q6H PRN PRN Reason: NAUSEA AND/OR VOMITING Last Admin: 02/04/18 08:37 Dose: 4 mg Oxycodone HCl (Roxicodone -) 10 mg PO Q4H PRN PRN Reason: PAIN LEVEL 4 - 6 Last Admin: 02/04/18 08:27 Dose: 10 mg Prednisone (Deltasone -) 40 mg PO DAILY [facility] Last Admin: 02/04/18 10:27 Dose: 40 mg Zolpidem Tartrate (Ambien -) 5 mg PO HS PRN PRN Reason: INSOMNIA Last Admin: 02/03/18 23:43 Dose: 5 mg - Objective Vital Signs: Vital Signs Temperature 100.1 F H 02/04/18 08:26 Pulse Rate 92 H 02/04/18 08:26 Respiratory Rate 20 02/04/18 08:26 Blood Pressure 138/80 02/04/18 08:26 O2 Sat by Pulse Oximetry (%) 97 02/04/18 09:00 Constitutional: Yes: No Distress, Calm Cardiovascular: Yes: Regular Rate and Rhythm Respiratory: Yes: CTA Bilaterally Gastrointestinal: Yes: Normal Bowel Sounds, Soft. No: Tenderness Edema: No Labs: CBC, BMP 02/04/18 06:30 02/04/18 06:30 INR, PTT INR 1.21 (0.82-1.09) H 01/28/18 02:00 Problem List - Problems (1) Abdominal pain Code(s): R10.9 - UNSPECIFIED ABDOMINAL PAIN Qualifiers: Abdominal location: left lower quadrant Qualified Code(s): R10.32 - Left lower quadrant pain (2) Bloody diarrhea Code(s): R19.7 - DIARRHEA, UNSPECIFIED (3) Colitis Code(s): K52.9 - NONINFECTIVE GASTROENTERITIS AND COLITIS, UNSPECIFIED (4) Crohn's colitis Code(s): K50.10 - CROHN'S DISEASE OF LARGE INTESTINE WITHOUT COMPLICATIONS (5) Hypokalemia Code(s): E87.6 - HYPOKALEMIA Assessment/Plan PLAN stool studies negative for infectious etiology started on Prednisone, may need to increase dose per GI continue with meds, suppository monitor cbc , may need transfusion if further decrease
[2018-02-04] MEDS ORDERED: LIDOCAINE HCL 5% TOP OINTMENT 50 GM TUBE TP SCH (12:00)
[2018-02-04 19:07] VITALS: BP 128/88; PULSE 73; TEMP 98.6
--- NOTE | 2018-02-04 19:24 | PN ---
Progress Note, Physician History of Present Illness: Clinically the same. Reports 2 episodes hematochezia. Reports improvement with the Rowasa. Slight bump in leukocytosis. - Objective Vital Signs: Vital Signs Temperature 98.6 F 02/04/18 18:00 Pulse Rate 73 02/04/18 18:00 Respiratory Rate 20 02/04/18 18:00 Blood Pressure 128/88 02/04/18 18:00 O2 Sat by Pulse Oximetry (%) 97 02/04/18 09:00 Constitutional: Yes: No Distress, Calm Gastrointestinal: Yes: Soft, Rectal Bleeding. No: Melena, Tenderness, Vomiting Labs: CBC, BMP 02/04/18 06:30 02/04/18 06:30 INR, PTT INR 1.21 (0.82-1.09) H 01/28/18 02:00 Problem List - Problems (1) Hematochezia Code(s): K92.1 - MELENA (2) Crohn's colitis Code(s): K50.10 - CROHN'S DISEASE OF LARGE INTESTINE WITHOUT COMPLICATIONS (3) Abdominal pain Code(s): R10.9 - UNSPECIFIED ABDOMINAL PAIN Qualifiers: Abdominal location: left lower quadrant Qualified Code(s): R10.32 - Left lower quadrant pain (4) Colitis Code(s): K52.9 - NONINFECTIVE GASTROENTERITIS AND COLITIS, UNSPECIFIED (5) Hypokalemia Code(s): E87.6 - HYPOKALEMIA Assessment/Plan Nontoxic. Not in distress. Still c/o hematochezia, clots. Mild leukocytosis. Agrees to take Rowasa. Change steroids to Solu-Medrol 100 mg every 8 hours
--- NOTE | 2018-02-04 19:29 | DS ---
Physical Examination Vital Signs: Vital Signs Temperature 98.6 F 02/04/18 18:00 Pulse Rate 73 02/04/18 18:00 Respiratory Rate 20 02/04/18 18:00 Blood Pressure 128/88 02/04/18 18:00 O2 Sat by Pulse Oximetry (%) 97 02/04/18 09:00 Labs: CBC, BMP 02/04/18 06:30 02/04/18 06:30 Discharge Summary Reason For Visit: ABDOMINAL PAIN COLITIS BLOODY DIARRHEA Hospital Course: admitted for crohn's flare seen by GI pt signed out AMA -- understands the risks - Instructions Referrals: José Miguel Cook MD, MD [Staff Physician] - Disposition: AGAINST MEDICAL ADVICE - Home Medications Comprehensive Discharge Medication List: Ambulatory Orders Eszopiclone 2 mg PO HS 01/28/18 Mesalamine [Canasa] 1,000 mg RC PRN 01/28/18
[2018-02-05] MEDS ORDERED: methylPREDNISolone NA SUCC 125 MG/2 ML VIAL IVPUSH SCH (10:00)
== END 2018-02-04 19:11 | disposition left against medical advice (07) | DRG 245 ==
LOC: JER 00:14 → JERBED 06:47 → J5S 17:14
PROVIDERS: ADMIT Internal Medicine; ATTEND Internal Medicine
DX: K50.10 Crohn's disease of large intestine without complications (principal); K52.9 Noninfective gastroenteritis and colitis, unspecified; R19.7 Diarrhea, unspecified; E87.6 Hypokalemia; K92.1 Melena; D72.829 Elevated white blood cell count, unspecified; R10.32 Left lower quadrant pain
CPT/HCPCS: 36415; 71045-TC-FY; 74177-TC; 80048; 80053; 82272; 83605; 83735; 84100; 84132; 84703; 85025; 85027; 85044; 85610; 85651; 86704; 86706; 86708; 86850; 86900; 86901; 87040; 87045; 87046; 87177; 87205; 87209; 87324; 87340; 87449; 93005; 93010; 99285-25; J7030

== ENCOUNTER 2019-07-22 12:24 | Day surgery (SDC) | payer BC, OTHER ==
[2019-07-21 17:23] VITALS: BMI 24.3
[2019-07-22] MEDS ORDERED: KETOROLAC TROMETHAMINE 30 MG/1 ML VIAL ONE (13:41)
[2019-07-22] MEDS ORDERED: LIDOCAINE HCL/PF 2% SDV 5ML VIAL ONE (13:41)
[2019-07-22] MEDS ORDERED: DEXAMETHASONE SOD PHOSPHATE 4 MG/1 ML VIAL ONE (13:41)
[2019-07-22] MEDS ORDERED: PROPOFOL 20 ML ONE (13:43)
[2019-07-22] MEDS ORDERED: SUCCINYLCHOLINE CHLORIDE 200 MG/10 ML SYRINGE ONE (13:43)
[2019-07-22] MEDS ORDERED: MIDAZOLAM HCL 2 MG/2 ML SINGLE DOSE VIAL ONE (13:43)
[2019-07-22 13:53] LABS: BASO % 1.1 % (0-2.0); EOS % 1.6 % (0-4.5); HEMATOCRIT 29.1 % (32.4-45.2); HEMOGLOBIN 9.3 GM/dL (10.7-15.3); LYMPH % 27.1 % (8-40); MCH 25.6 pg (25.7-33.7); MCHC 31.9 g/dl (32.0-36.0); MEAN CELL VOLUME 80.3 fl (80-96); MEAN PLT VOLUME 6.8 fl (7.5-11.1); MONO % 8.9 % (3.8-10.2); NEUT % 61.3 % (42.8-82.8); PLATELET COUNT 750 K/MM3 (134-434); RBC 3.63 M/mm3 (3.60-5.2); RDW 16.7 % (11.6-15.6)
[2019-07-22] MEDS ORDERED: LIDOCAINE HCL 2% 100 MG/5 ML DISP.SYRIN ONE (14:05)
[2019-07-22 14:08] LABS: INR 1.03 (0.83-1.09); PROTHROMBIN TIME (PATIENT) 12.2 SEC (9.7-13.0)
[2019-07-22 14:11] LABS: ACTIVATED PTT 29.5 SECONDS (25.2-36.5)
[2019-07-22 14:29] LABS: ALBUMIN 3.5 g/dl (3.4-5.0); ALK PHOS 70 U/L (45-117); ANION GAP 8 MMOL/L (8-16); BILIRUBIN,TOTAL 0.2 mg/dL (0.2-1); BLOOD UREA NITROGEN 11.8 mg/dL (7-18); CALCIUM 9.2 mg/dL (8.5-10.1); CHLORIDE 107 mmol/L (98-107); CO2 26 mmol/L (21-32); CREATININE 0.8 mg/dL (0.55-1.3); GLUCOSE,RANDOM 77 mg/dL (74-106); POTASSIUM 3.9 mmol/L (3.5-5.1); SGOT/AST 10 U/L (15-37); SGPT/ALT 14 U/L (13-61); SODIUM 141 mmol/L (136-145); TOT PROT 7.1 g/dl (6.4-8.2)
--- NOTE | 2019-07-22 15:13 | HP ---
History & Physical Update - History History: No Change (Menometrorrhagia, anemia, uterine polyp) - Physical Physical: No Change - Assessment Assessment: No Change - Plan Plan: No Change (Hysteroscopy, D&C, excison of uterine mass.)
--- NOTE | 2019-07-22 15:17 | OP ---
Operative Note - Note: Operative Date: 07/22/19 Pre-Operative Diagnosis: Menometrorrhagia, anemia, uterine polyp Operation: Hysteroscopy, D&C, polypectomy Findings: Slightly irregular endometrial cavity with fundal indentation (c/w possible fibroid vs arcuate uterus), right fundal polyp Post-Operative Diagnosis: Same as Pre-op Surgeon: Pablo Pablo Anesthesiologist/CONSTRUCTION PROJECT ASSISTANT: José Miguel Meeks Anesthesia: General Specimens Removed: endometrial curettings, endometrial polyp. Estimated Blood Loss (mls): 10 Blood Volume Replaced (mls): 0 Fluid Volume Replaced (mls): 1,000 Operative Report Dictated: Yes
[2019-07-22] MEDS ORDERED: LACTATED RINGERS SOLUTION 1,000 ML IV SCH (16:00)
[2019-07-22 16:38] VITALS: TEMP 97.8
[2019-07-22 17:11] VITALS: BP 110/77; PULSE 63
--- NOTE | 2019-07-27 13:44 | PATH ---
Surgical Pathology Report Patient Name: DAMIAN ABEBE [facility]. Rec. #: [id number] /Age/Gender: 1975 (Age: 43) / F Account: [id number] Location: [facility] Taken: 07/22/2019 Received: 07/23/2019 Reported: 07/27/2019 Physicians: Pablo Pablo M.D. Specimen(s) Received ENDOMETRIAL CURETTINGS Clinical History Menorrhagia and endometrial polyp Final Diagnosis ENDOMETRIAL CURETTINGS, DILATION AND CURETTAGE: POLYPOID FRAGMENTS OF SECRETORY ENDOMETRIUM WITH GLANDULAR AND STROMAL BREAKDOWN ADMIXED WITH BLOOD. Electronically Signed Cinthia Horn M.D. Addendum Reported: 07/28/2019 Addendum Diagnosis ADDITIONAL AREAS OF CHRONIC ENDOMETRITIS PRESENT. Cinthia Horn M.D. Gross Description Received in formalin labeled "endometrial curettings," is a 3.7 x 3.0 x 0.3 cm aggregate of do-brown soft tissue fragments admixed with blood clot. The formalin is filtered and the specimen is entirely submitted in 3 cassettes. DL/07/23/2019 saudi/07/23/2019
--- NOTE | 2019-08-13 11:38 | OP ---
DATE OF OPERATION: 07/22/2019 PREOPERATIVE DIAGNOSIS: Menometrorrhagia, anemia, uterine polyp. POSTOPERATIVE DIAGNOSIS: Menometrorrhagia, anemia, uterine polyp. SURGEON: Pablo Pablo MD ANESTHESIOLOGIST: José Miguel Meeks MD ANESTHESIA: General. COMPLICATIONS: None. ESTIMATED BLOOD LOSS: 10 mL. INTRAVENOUS FLUIDS: 1000 mL. PATHOLOGY: Endometrial curettings, endometrial polyp. FINDINGS: Normal uterus with no pelvic or adnexal masses on pelvic examination. Hysteroscopy revealed a slightly irregular endometrial cavity with a small, fundal indentation. This could be consistent with a past possible submucosal fibroid versus an arcuate uterus. A right fundal polyp was also noted. DESCRIPTION OF THE PROCEDURE: The patient was met preoperatively. Risks, benefits, and alternatives of surgery were discussed in details. All questions were answered. The consent form was discussed and reviewed. The patient verbalized her understanding. The consent form was signed. The patient then requested to proceed with the surgery. She was brought to the OR with the IV running. The patient was placed on the surgical table in the supine position. The general anesthesia was achieved without difficulty. The patient was placed in a dorsal lithotomy position using adjustable Krystian stirrups. She was examined under anesthesia with the findings as described above. The patient was then prepped and draped in the usual sterile fashion. A time-out was conducted as per standard protocol. A weighted speculum was introduced inside the vagina with good visualization of the cervix. The cervix was grasped with a single-tooth tenaculum. The cervical os was dilated to accommodate a size 21 Banuelos dilator. A Symphion hysteroscope was then introduced inside the uterine cavity. The uterine cavity appeared to be slightly irregular. A small, fundal indentation was noted consistent with either a submucosal myoma or an arcuate uterus. A right fundal polyp was also observed. A Symphion resectoscope was then used to completely resect the polyp. Once this was completed, good hemostasis was noted. The hysteroscope was removed. Uterine curettage was performed. All of the tissue was submitted to Pathology. Good hemostasis was noted. Sponge, lap, instrument counts were correct. Good hemostasis was once again confirmed. The patient was returned to supine position. She was transferred to recovery room in stable condition and awake. Ana Paula PLATT/[id number]
== END 2019-07-22 17:15 | disposition home or self-care (01) ==
LOC: JASU-SURG 12:24
PROVIDERS: ATTEND Obstetrics & Gynecology
PROC: 0UB98ZX Excision of Uterus, Via Natural or Artificial Opening Endoscopic, Diagnostic (ICD-10-PCS; principal; 2019-07-22 14:00)
PROC: 0UDB7ZX Extraction of Endometrium, Via Natural or Artificial Opening, Diagnostic (ICD-10-PCS; 2019-07-22 14:00)
DX: N92.1 Excessive and frequent menstruation with irregular cycle (principal); D64.9 Anemia, unspecified; N84.0 Polyp of corpus uteri
CPT/HCPCS: 36415; 80053; 84702; 85025; 85610; 85730; 86850; 86900; 86901; 88305-TC; 94760

== ENCOUNTER 2024-03-28 11:09 | Emergency (ER) | payer OTHER ==
[2024-03-28 11:19] VITALS: BP 124/87; PULSE 71; RESP 20; TEMP 98.4; BMI 31.0
[2024-03-28 13:53] LABS: BASO % 1.7 % (0-2.0); HEMATOCRIT 38.6 % (32.4-45.2); MCHC 33.6 g/dl (32.0-36.0); MEAN CELL VOLUME 92.2 fl (80-96); MEAN PLT VOLUME 6.9 fl (7.5-11.1); MONO % 7.4 % (3.8-10.2); NEUT % 51.9 % (42.8-82.8); PLATELET COUNT 521 10^3/uL (134-434); RBC 4.19 M/mm3 (3.60-5.2); RDW 14.3 % (11.6-15.6); WHITE BLOOD COUNT 6.9 K/mm3 (4.0-10.0)
[2024-03-28 13:58] LABS: INR 0.92 (0.83-1.09); PROTHROMBIN TIME (PATIENT) 10.4 SEC (9.7-13.0)
[2024-03-28 14:01] LABS: ACTIVATED PTT 34.5 SECONDS (25.2-36.5)
[2024-03-28 14:01] LABS: PH,URINE 7.5 (5.0-8.0); URINE APPEARANCE CLEAR; URINE BILIRUBIN NEGATIVE (NEGATIVE); URINE COLOR YELLOW; URINE GLUCOSE (UA) NEGATIVE (NEGATIVE); URINE KETONE NEGATIVE (NEGATIVE); URINE LEUK ESTERASE NEGATIVE (NEGATIVE); URINE NITRITE NEGATIVE (NEGATIVE); URINE PROTEIN NEGATIVE (NEGATIVE); URINE UROBILINOGEN 0.2 mg/dL (0.2-1.0)
[2024-03-28 14:06] LABS: HCG,QUALITATIVE URINE NEGATIVE
[2024-03-28 14:07] LABS: POTASSIUM 4.3 mmol/L (3.5-5.1)
[2024-03-28 14:11] LABS: ALBUMIN 3.9 g/dl (3.4-5.0); BLOOD UREA NITROGEN 15.1 mg/dL (7-18); CALCIUM 9.4 mg/dL (8.5-10.1)
[2024-03-28 14:13] LABS: CREATININE 0.7 mg/dL (0.55-1.3)
[2024-03-28 14:15] LABS: BILIRUBIN,TOTAL 0.3 mg/dL (0.2-1)
[2024-03-28 14:16] LABS: N-TERMINAL BNP 24.6 pg/ml (5-125)
== END 2024-03-28 18:00 | disposition home or self-care (01) ==
LOC: JER 11:09
DX: R00.2 Palpitations (principal); R93.89 Abnormal findings on diagnostic imaging of other specified body structures; R06.02 Shortness of breath; R07.9 Chest pain, unspecified; M79.89 Other specified soft tissue disorders; M79.81 Nontraumatic hematoma of soft tissue; R19.00 Intra-abdominal and pelvic swelling, mass and lump, unspecified site; R51.9 Headache, unspecified; R53.83 Other fatigue; R68.83 Chills (without fever)
CPT/HCPCS: 36415; 71046-TC-FY; 71275-TC; 80053; 81003; 83880; 84443; 84484; 84703; 85025; 85379; 85610; 85730; 87086; 93005; 93010; 93970-TC; 93971; 99285-25; Q9967

== ENCOUNTER 2024-04-21 18:08 | Emergency (ER) | payer OTHER ==
[2024-04-21 18:34] VITALS: BP 132/87; PULSE 79; RESP 16; TEMP 98.5; BMI 28.8
== END 2024-04-21 21:11 | disposition home or self-care (01) ==
LOC: JER 18:08 → JERFT 18:08
DX: M25.561 Pain in right knee (principal)
CPT/HCPCS: 93971-TC; 99284-25